=== PATIENT | female | born 1935 ===

== ENCOUNTER 2016-09-13 16:36 | Emergency (ER) | payer MEDICARE, MEDICAID ==
[2016-09-13 16:37] VITALS: BMI 22.6
[2016-09-13] MEDS ORDERED: Aluminum Hydroxide/Magnesium Hydroxide Susp (30 mL) PO STA (17:02)
[2016-09-13] MEDS ORDERED: Lidocaine 2% Viscous 100 ml PO STA (17:02)
--- NOTE | 2016-09-13 17:56 | C.PDOC ---
History Of Present Illness 81 y/o female presents to the ED with complains of headache and intermittent dizziness x1 week and epigastric pain x3 days. Headache is described as left posterior occiput and left neck, 6/10 discomfort. Abdominal pain is burning and radiates to chest. Pt also reports left posterior rib pain and right arm pain x3 days s/p fall. Pt was getting out of bed when she tripped on a sandle and fell onto nightstand with right side; pain is constant 8/10. Pt denies LOC, or head injury. Pt denies chest pain, SOB, fever, chills, nausea, vomiting or any other complaints. Time Seen by Provider: 09/13/16 16:56 Chief Complaint (Nursing): Abdominal Pain History Per: Patient History/Exam Limitations: no limitations Onset/Duration Of Symptoms: Days Current Symptoms Are (Timing): Still Present Severity: Moderate Radiation Of Pain To:: Chest Quality Of Discomfort: Burning Associated Symptoms: denies: Fever, Chills, Nausea, Vomiting Exacerbating Factors: None Alleviating Factors: None Recent travel outside of the [place]: No Past Medical History Reviewed: Historical Data, Nursing Documentation, Vital Signs Vital Signs: Last Vital Signs Temp 99 F 09/13/16 16:42 Pulse 86 09/13/16 18:12 Resp 20 09/13/16 18:12 BP 137/61 09/13/16 18:12 Pulse Ox 98 09/13/16 18:11 - Medical History PMH: Anxiety, Diabetes, HTN, Osteoporosis Denies: Anemia - [facility] Procedures ANT NASAL PACK FOR EPIST (05/26/14) Family History: States: Unknown Family Hx - Social History Hx Tobacco Use: No Hx Alcohol Use: No Hx Substance Use: No - Immunization History Hx Tetanus Toxoid Vaccination: No Hx Influenza Vaccination: Yes Hx Pneumococcal Vaccination: No Review Of Systems Except As Marked, All Systems Reviewed And Found Negative. Constitutional: Negative for: Fever, Chills Cardiovascular: Negative for: Chest Pain Respiratory: Negative for: Shortness of Breath Gastrointestinal: Positive for: Abdominal Pain (epigastric radiating to chest). Negative for: Nausea, Vomiting Musculoskeletal: Positive for: Other (left rib and arm pain) Neurological: Positive for: Headache, Dizziness Physical Exam - Physical Exam Appears: Non-toxic, No Acute Distress Skin: Warm, Dry, No Rash Head: Atraumatic, Normacephalic, No Swelling, No Abrasion Nose: Normal Neck: Normal ROM, No Midline Cervical Tenderness, No Paracervical Tenderness, Supple Chest: Symmetrical Cardiovascular: Rhythm Regular, No Murmur Respiratory: Normal Breath Sounds, No Rales, No Rhonchi, No Wheezing Gastrointestinal/Abdominal: Soft, No Tenderness Back: No Vertebral Tenderness, No Paraspinal Tenderness, Other (right posterior rib tenderness over ribs 10-11) Extremity: Normal ROM, No Pedal Edema Extremity: Bilateral: Atraumatic Neurological/Psych: Oriented x3, Normal Motor, Normal Sensation ED Course And Treatment - Laboratory Results Result Diagrams: 09/13/16 17:54 09/13/16 17:54 O2 Sat by Pulse Oximetry: 98 (on room air) Pulse Ox Interpretation: Normal - CT Scan/US CT head Other Rad Studies (CT/US): Read By Radiologist, Radiology Report Reviewed CT/US Interpretation: Accession No. : [id number]. Patient Name / ID : BLAKE SALBADOR / [id number]. Exam Date : 09/13/2016 17:40:26 ( Approved ). Study Comment : Sex / Age : F / 81Y. Creator : Baron Cadet MD. Dictator : Baron Cadet MD. Languages And Literature Instructor : Parking Lot Signaler : Baron Cadet MD. Approver2 : Report Date : 09/13/2016 17:58:17. My Comment : . PROCEDURE: CT HEAD WITHOUT CONTRAST. HISTORY: R/O Bleed. COMPARISON: None available. TECHNIQUE: Axial computed tomography images were obtained through the head/ brain without intravenous contrast. Radiation dose: Total exam DLP = 629.08 mGy-cm. FINDINGS: HEMORRHAGE: No acute parenchymal, subarachnoid or extra- axial hemorrhage. BRAIN: Moderate 2 fairly significant diffuse/ coalescent chronic white matter ischemic changes seen extending peripherally into the deep and subcortical white matter both cerebral hemispheres. There is also some extension of these changes into the white matter tracts of both basal nuclei. Vascular calcifications are present. VENTRICLES: Moderate central volume loss with disproportion enlargement of the ventricles compared the sulci. CALVARIUM : There are no acute calvarial fracture seen. PARANASAL SINUSES: Unremarkable as visualized. No significant inflammatory changes. MASTOID AIR CELLS: Apparent postoperative changes of the right middle ear canal and possibly some of the at inferior mastoid air cells. There is also opacification of the residual right mastoid air complex. OTHER FINDINGS: Status post bilateral cataract surgery. IMPRESSION: No acute intracranial hemorrhage. Moderate to fairly significant chronic white matter ischemic changes with extension into the basal nuclei. Apparent postoperative changes right middle ear canal possibly at several inferior mastoid air cells. There is opacification of the residual right mastoid air complex. Moderate central volume loss. Trent Medical Decision Making Medical Decision Making: Plan: CT head, EKG, XR ribs/chest, maalox, pepcid, UA Patient feeling much better, will d/c with follow up. Disposition Counseled Patient/Family Regarding: Studies Performed, Diagnosis, Need For Followup - Disposition Referrals: Pierre Strattno MD [Staff Provider] - Disposition: HOME/ ROUTINE Disposition Time: 18:59 Condition: IMPROVED Prescriptions: Famotidine [Pepcid] 1 tab PO BID #30 tab Acetaminophen [Tylenol Extra Strength] 1,000 mg PO BID #10 tablet Instructions: Gastritis (ED) Forms: Gen Discharge Inst Wallisian - Clinical Impression Clinical Impression: Gastritis, Rib contusion - Scribe Statement The provider has reviewed the documentation as recorded by the Poornima Cooper Provider Attestation: All medical record entries made by the Poornima were at my direction and personally dictated by me. I have reviewed the chart and agree that the record accurately reflects my personal performance of the history, physical exam, medical decision making, and the department course for this patient. I have also personally directed, reviewed, and agree with the discharge instructions and disposition.
[2016-09-13 17:59] LABS: BASO % 0.5 % (0.0-2.0); EOS # 0.1 K/uL (0.0-0.7); EOS % 1.5 % (0.0-4.0); HEMATOCRIT 36.5 % (34.0-47.0); LYMPH # 1.5 K/uL (1.0-4.3); LYMPH % 16.4 % (20.0-40.0); MEAN CORPUSCULAR HEMOGLOBIN 28.2 pg (27.0-31.0); MEAN PLATELET VOLUME 8.9 fL (7.2-11.7); MONO # 0.8 K/uL (0.0-0.8); MONO % 8.5 % (0.0-10.0); RED CELL DISTRIBUTION WIDTH 13.1 % (11.5-14.5); WHITE BLOOD COUNT 9.2 K/uL (4.8-10.8)
--- NOTE | 2016-09-13 17:59 | CT ---
PROCEDURE: CT HEAD WITHOUT CONTRAST. HISTORY: R/O Bleed COMPARISON: None available. TECHNIQUE: Axial computed tomography images were obtained through the head/brain without intravenous contrast. Radiation dose: Total exam DLP = 629.08 mGy-cm. FINDINGS: HEMORRHAGE: No acute parenchymal, subarachnoid or extra-axial hemorrhage. BRAIN: Moderate 2 fairly significant diffuse/ coalescent chronic white matter ischemic changes seen extending peripherally into the deep and subcortical white matter both cerebral hemispheres. There is also some extension of these changes into the white matter tracts of both basal nuclei. Vascular calcifications are present. VENTRICLES: Moderate central volume loss with disproportion enlargement of the ventricles compared the sulci. CALVARIUM: There are no acute calvarial fracture seen. PARANASAL SINUSES: Unremarkable as visualized. No significant inflammatory changes. MASTOID AIR CELLS: Apparent postoperative changes of the right middle ear canal and possibly some of the at inferior mastoid air cells. There is also opacification of the residual right mastoid air complex. OTHER FINDINGS: Status post bilateral cataract surgery. IMPRESSION: No acute intracranial hemorrhage. Moderate to fairly significant chronic white matter ischemic changes with extension into the basal nuclei. Apparent postoperative changes right middle ear canal possibly at several inferior mastoid air cells. There is opacification of the residual right mastoid air complex. Moderate central volume loss. Trent
[2016-09-13 18:02] LABS: MEAN CELL VOLUME 85.3 fL (81.0-99.0)
[2016-09-13] MEDS ORDERED: Aluminum Hydroxide/Magnesium Hydroxide Susp (30 mL) ONE (18:08)
[2016-09-13 18:34] LABS: CHLORIDE 99 mmol/L (98-107)
[2016-09-13 18:35] LABS: POTASSIUM 4.3 mmol/L (3.6-5.2); SODIUM 139 mmol/L (132-148)
[2016-09-13 18:37] LABS: ALB/GLOB RATIO 1.1 (1.0-2.1); ALKALINE PHOSPHATASE 67 U/L (38-126); AST/SGOT 23 U/L (14-36); BILIRUBIN,TOTAL 0.4 mg/dL (0.2-1.3); BLOOD UREA NITROGEN 18 mg/dL (7-17); CARBON DIOXIDE 29 mmol/L (22-30); GFR AFRICAN-AMERICAN > 60; GLUCOSE,RANDOM 110 mg/dL (65-105); TOTAL PROTEIN 7.8 g/dL (6.3-8.3)
[2016-09-13 18:38] LABS: ALT/SGPT 28 U/L (9-52); CALCIUM 9.4 mg/dl (8.6-10.4)
[2016-09-13 19:03] LABS: RBC URINE < 1 /hpf (0-3); URINE BACTERIA RARE (<OCC); URINE BILIRUBIN NEGATIVE (NEGATIVE); URINE BLOOD NEGATIVE (NEGATIVE); URINE COLOR Straw (YELLOW); URINE GLUCOSE (UA) NORMAL (Normal); URINE KETONE NEGATIVE (NEGATIVE); URINE LEUKOCYTE ESTERASE NEG Leu/uL (Negative); URINE PROTEIN NEGATIVE (NEGATIVE); URINE UROBILINOGEN NORMAL mg/dL (0.2-1.0); WBC URINE < 1 /hpf (0-5)
[2016-09-13 19:15] VITALS: BP 123/66; PULSE 85; RESP 16; TEMP 98.2; O2SAT 96
--- NOTE | 2016-09-14 17:42 | RAD ---
Chest and right rib series dated 09/13/2016. History: Status post fall with right rib pain. Frontal view of the chest and 3 additional views right ribs performed. Comparison made with prior study 01/24/2015. Findings: Heart size is upper limits of normal/borderline enlarged. Aorta is slightly ectatic and uncoiled. Mild bibasilar atelectasis and or scarring changes. No apparent pneumothorax. No definitive evidence of acute displaced right-sided rib fracture seen. If symptoms persist or occult fracture suspected clinically, recommend followup CT scan of the chest. Multilevel degenerative spondylosis of the thoracic spine. Degenerative changes of the both shoulder girdles right greater than left. Impression: No definitive radiographic evidence of acute displaced right-sided rib fracture however followup CT scan could be performed if occult fracture suspected clinically. Mild bibasilar atelectasis and or scarring.
--- NOTE | 2016-09-14 22:19 | CARD ---
APPROVED REPORT EKG Measurement Heart [id number] <Conclusion> Normal sinus rhythm Normal ECG
== END 2016-09-13 19:15 | disposition home or self-care (01) ==
LOC: C.ER 16:36
DX: K29.70 Gastritis, unspecified, without bleeding (principal); S20.212A Contusion of left front wall of thorax, initial encounter; W19.XXXA Unspecified fall, initial encounter

== ENCOUNTER 2016-10-01 22:51 | Emergency (ER) | payer MEDICARE, MEDICAID ==
[2016-10-03 11:19] LABS: HEMATOCRIT 32.5 % (34.0-47.0); MEAN CELL VOLUME 86.7 fL (81.0-99.0); MEAN CORPUSCULAR HEMOGLOBIN 27.6 pg (27.0-31.0); MEAN CORPUSCULAR HGB CONC 31.9 g/dL (33.0-37.0); WHITE BLOOD COUNT 9.1 K/uL (4.8-10.8)
[2016-10-03 11:20] LABS: MEAN PLATELET VOLUME 9.1 fL (7.2-11.7); RED CELL DISTRIBUTION WIDTH 13.6 % (11.5-14.5)
[2016-10-03 11:24] LABS: BLOOD UREA NITROGEN 19 mg/dL (7-17); CALCIUM 9.2 mg/dl (8.6-10.4); CARBON DIOXIDE 30 mmol/L (22-30); CHLORIDE 99 mmol/L (98-107); GFR AFRICAN-AMERICAN > 60; GLUCOSE,RANDOM 121 mg/dL (65-105); POTASSIUM 4.7 mmol/L (3.6-5.2); SODIUM 140 mmol/L (132-148)
== END 2016-10-02 01:44 | disposition home or self-care (01) ==
LOC: C.ER 22:51
DX: K92.2 Gastrointestinal hemorrhage, unspecified (principal)

== ENCOUNTER 2016-10-05 10:12 | Inpatient (IN) | payer MEDICAID, MEDICARE ==
[2016-10-05 10:13] VITALS: BMI 22.6
[2016-10-05 11:05] LABS: BASO # 0.1 K/uL (0.0-0.2); BASO % 0.9 % (0.0-2.0); EOS # 0.3 K/uL (0.0-0.7); EOS % 2.7 % (0.0-4.0); HEMATOCRIT 30.9 % (34.0-47.0); LYMPH # 2.2 K/uL (1.0-4.3); LYMPH % 21.4 % (20.0-40.0); MEAN CELL VOLUME 87.4 fL (81.0-99.0); MEAN CORPUSCULAR HEMOGLOBIN 27.6 pg (27.0-31.0); MEAN CORPUSCULAR HGB CONC 31.6 g/dL (33.0-37.0); MEAN PLATELET VOLUME 9.1 fL (7.2-11.7); MONO # 0.5 K/uL (0.0-0.8); MONO % 4.8 % (0.0-10.0); RED CELL DISTRIBUTION WIDTH 13.4 % (11.5-14.5); WHITE BLOOD COUNT 10.2 K/uL (4.8-10.8)
[2016-10-05 11:13] LABS: CHLORIDE 100 mmol/L (98-107); POTASSIUM 4.4 mmol/L (3.6-5.2); SODIUM 143 mmol/L (132-148)
[2016-10-05 11:15] LABS: AST/SGOT 19 U/L (14-36); BILIRUBIN,TOTAL 0.3 mg/dL (0.2-1.3); CARBON DIOXIDE 29 mmol/L (22-30); GFR AFRICAN-AMERICAN > 60
[2016-10-05 11:16] LABS: ALB/GLOB RATIO 1.3 (1.0-2.1); ALKALINE PHOSPHATASE 60 U/L (38-126); ALT/SGPT 22 U/L (9-52); BLOOD UREA NITROGEN 18 mg/dL (7-17); CALCIUM 8.8 mg/dl (8.6-10.4); GLUCOSE,RANDOM 124 mg/dL (65-105); TOTAL PROTEIN 6.9 g/dL (6.3-8.3)
[2016-10-05 11:23] LABS: INR 1.1
--- NOTE | 2016-10-05 11:28 | C.PDOC ---
History Of Present Illness 81 year old patient, with a past medical history of hypertension, anxiety, GERD , and diabetes, presents to the ED complaining of painless rectal bleeding. Notes bright red blood with clots mixed with stool. Episode was with and without bowel movement. Also notes abdominal pain for the past 2 days, has improved now. (+) occassional dizziness. Patient was seen in the ED on 10/01/16 for similar symptoms. Pt was discharged home but has not f/u outpt. She states she had a colonoscopy "years ago". Patient denies fever, nausea, vomiting, chest pain, SOB, dysuria, or rectal pain. Time Seen by Provider: 10/05/16 10:22 Chief Complaint (Nursing): GI Problem History Per: Patient, Family (son) History/Exam Limitations: language barrier (ED staff translated) Onset/Duration Of Symptoms: Days (2) Current Symptoms Are (Timing): Still Present Number Of Bleeding Episodes: Multiple: (3) Amount of Blood Loss: Small Severity: Moderate Pain Scale Rating Of: 4 Quality Of Discomfort: "Pain" Associated Symptoms: Rectal Bleeding Recent travel outside of the [place]: No Additional History Per: Family Past Medical History Reviewed: Historical Data, Nursing Documentation, Vital Signs Vital Signs: Last Vital Signs Temp 97.8 F 10/05/16 13:01 Pulse 80 10/05/16 13:01 Resp 20 10/05/16 13:01 BP 130/57 L 10/05/16 13:01 Pulse Ox 100 10/05/16 13:01 - Medical History PMH: Anxiety, Diabetes, HTN, Osteoporosis Other Surgeries: Tubal ligation; nasal - [facility] Procedures ANT NASAL PACK FOR EPIST (05/26/14) Family History: States: Other (father - prostate CA, brother - CA) - Social History Hx Tobacco Use: No Hx Alcohol Use: No Hx Substance Use: No - Immunization History Hx Tetanus Toxoid Vaccination: No Hx Influenza Vaccination: Yes Hx Pneumococcal Vaccination: No Review Of Systems Except As Marked, All Systems Reviewed And Found Negative. Constitutional: Negative for: Fever Gastrointestinal: Positive for: Abdominal Pain, Other (rectal bleeding). Negative for: Nausea, Vomiting, Rectal Pain Physical Exam - Physical Exam Appears: Non-toxic, No Acute Distress Skin: Warm, Dry Head: Atraumatic, Normacephalic Eye(s): bilateral: Normal Inspection, EOMI Nose: Normal Oral Mucosa: Moist Neck: Normal ROM, Supple Chest: Symmetrical Cardiovascular: Rhythm Regular Respiratory: Normal Breath Sounds, No Accessory Muscle Use Gastrointestinal/Abdominal: Soft, No Tenderness, No Guarding, No Rebound Rectal: Blood Streaked Stool, No Hemorrhoids, No Tenderness Back: Normal Inspection, No CVA Tenderness Extremity: Normal ROM Neurological/Psych: Oriented x3 ED Course And Treatment - Laboratory Results Result Diagrams: 10/05/16 10:55 10/05/16 10:55 O2 Sat by Pulse Oximetry: 99 (RA) Pulse Ox Interpretation: Normal Progress Note: Plan: -Labs. --Reassess and disposition. PT hemoglobin March: 12; Today :9.7. Case discussed with Dr Anastacio sandra plan and treatment. Case discussed with Dr. Paniagua who is aware of the plan and admission. Disposition - Disposition Disposition: HOSPITALIZED Disposition Time: 13:00 Condition: STABLE - Clinical Impression Clinical Impression: Gastrointestinal hemorrhage - PA / INSTRUMENT TECHNICIAN / Resident Statement MD/DO has reviewed & agrees with the documentation as recorded. - Scribe Statement The provider has reviewed the documentation as recorded by the Scribe Delicia Acosta All medical record entries made by the Scribe were at my direction and personally dictated by me. I have reviewed the chart and agree that the record accurately reflects my personal performance of the history, physical exam, medical decision making, and the department course for this patient. I have also personally directed, reviewed, and agree with the discharge instructions and disposition.
[2016-10-05] MEDS ORDERED: Pantoprazole 80 MG in Sodium Chloride 0.9% 100 ML IVP SCH (12:00)
[2016-10-05] MEDS: Sodium Chloride 0.9% 1,000 ML IV SCH (12:15)
--- NOTE | 2016-10-05 12:15 | CP.PCM.HP ---
<Ksenia French - Last Filed: 10/05/16 13:23> History of Present Illness - History of Present Illness History of Present Illness: CC: "rectal bleeding" HPI: Patient is an 81 year old female with PMHx of HTN, osteoporosis and anxiety presenting for the second time this week to ER for rectal bleeding. Patient first had episode of rectal bleeding on 10/01/16. Patient and son giving history. Patient says bleeding on 10/01/16 was a little bit. They came to ER where her hgb was 10.3 and she was sent home with instructions to follow up with GI. Patient did not bleed again until this AM. Patient says she woke up and felt a "gushiness" in her underwear. It was stool mixed with blood. Patient got up and went to the toilet where more stool mixed with blood came up. She then showered. A lot of thin blood came out in the shower. Patient felt dizzy and weak at this time and continues to feel dizzy. Patient says blood has been slowly dripping out of her rectum since then. Patient says this has never happened before. Patient says she has had a problem with constipation for the past few years. Patient reports a 3 month history of epigastric pain associated with certain foods and xanax. Patient says she has a burning pain in her chest associated with nausea currently and pain in her abdomen. Patient also reports a dry cough since Thursday night. Patient denies fever, chills, cardiac pain, palpitations, SOB, vomiting, dysuria. PMD: Dr. 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 absent: Dyspnea, Excessive Mucous Production - Gastrointestinal Gastrointestinal: Constipation, Heartburn, Hematochezia, Nausea. absent: Coffee Ground Emesis, Diarrhea, Hematemesis, Vomiting - Genitourinary Genitourinary: absent: Dysuria - Musculoskeletal Musculoskeletal: absent: Back Pain - Integumentary Integumentary: absent: Rash - Neurological Neurological: Dizziness, Weakness. absent: Headaches - Endocrine Endocrine: Fatigue. absent: Palpitations - Hematologic/Lymphatic Hematologic: Easy Bleeding. absent: Easy Bruising Past Patient History - Past Medical History & Family History Past Medical History?: Yes Pertinent Family History: Mother - gastritis, Son1 - ulcer, son 2 - hemorrhoids, sister - has a pacemaker , father - prostate CA, brother - unknown type of cancer - Past Social History Smoking Status: Never Smoked Alcohol: None Drugs: Denies Home Situation {Lives}: With Family - CARDIAC Hx Hypertension: Yes - ENDOCRINE/METABOLIC Hx Diabetes Mellitus Type 2: No - HEMATOLOGICAL/ONCOLOGICAL Hx Anemia: No - MUSCULOSKELETAL/RHEUMATOLOGICAL Hx Osteoporosis: Yes - PSYCHIATRIC Hx Anxiety: Yes Hx Substance Use: No - SURGICAL HISTORY Hx Surgeries: Yes Hx Tubal Ligation: Yes Other/Comment: nasal surgery years ago - ANESTHESIA Hx Anesthesia: No Hx Anesthesia Reactions: No Meds Allergies/Adverse Reactions: Allergies Allergy/AdvReac Type Severity Reaction Status Date / Time shrimp Allergy Verified 10/05/16 10:24 Physical Exam - Constitutional Appears: Non-toxic, No Acute Distress - Head Exam Head Exam: NORMAL INSPECTION - Eye Exam Eye Exam: EOMI Additional comments: conjunctival pallor - ENT Exam ENT Exam: Mucous Membranes Moist - Respiratory Exam Respiratory Exam: Clear to Auscultation Bilateral, NORMAL BREATHING PATTERN. absent: Rales, Rhonchi, Wheezes - Cardiovascular Exam Cardiovascular Exam: REGULAR RHYTHM, +S1, +S2. absent: Gallop, Rubs, Systolic Murmur - GI/Abdominal Exam GI & Abdominal Exam: Normal Bowel Sounds, Soft, Tenderness (epigastric and umbilical). absent: Distended, Firm, Guarding, Hernia - Rectal Exam Rectal Exam: absent: Hemorrhoids - Extremities Exam Extremities exam: Positive for: normal capillary refill. Negative for: pedal edema - Neurological Exam Neurological exam: Alert, Oriented x3 - Psychiatric Exam Psychiatric exam: Normal Affect, Normal Mood - Skin Skin Exam: Normal Color, Warm Results - Vital Signs Recent Vital Signs: Last Vital Signs Temp 97.6 F 10/05/16 12:05 Pulse 79 10/05/16 12:05 Resp 18 10/05/16 12:05 BP 152/75 H 10/05/16 12:05 Pulse Ox 99 10/05/16 12:05 - Labs Result Diagrams: 10/05/16 10:55 10/05/16 10:55 Assessment & Plan - Assessment and Plan (Free Text) Assessment: GI bleed Hgb 9.7 F/U Hgb in AM Type and Screen Stop home ASA Protonix IV drip Tap water enema at 9pm and 6am Dulcolax 10mg PO at 5pm Reglan 5mg IVP Q6H x 2 days Golytely 4000mls PO at 1pm Clear liquid diet until midnight F/U CXR, EKG and Coags NPO after midnight for colonoscopy in AM GI consult - Dr. Alcala - help appreciated Cough F/U CXR H/O HTN Cozaar 100mg PO daily (converted from home med valsartan 160mg PO daily) Continue home norvasc 5mg PO daily H/O anxiety Continue home xanax 0.5mg PO BID PRN anxiety H/O osteoporosis No ibandronate or other bisphosphonates on formulary Patient takes it once a month. Prophylaxis SCDs Protonix IV drip <Dejuan Paniagua - Last Filed: 10/05/16 14:05> Results - Vital Signs Recent Vital Signs: Last Vital Signs Temp 97.8 F 10/05/16 13:01 Pulse 80 10/05/16 13:01 Resp 20 10/05/16 13:01 BP 130/57 L 10/05/16 13:01 Pulse Ox 100 10/05/16 13:01 - Labs Result Diagrams: 10/05/16 10:55 10/05/16 10:55 Attending/Attestation - Attestation I have personally seen and examined this patient.: Yes I have fully participated in the care of the patient.: Yes I have reviewed all pertinent clinical information: Yes Notes (Text): Medical attending: Patient was seen and examined by me, agrees the above note by medical assistant instructor. As documented above the resident note the patient was recently here with the same complaints, at that time she appeared to be very stable and her hemoglobin was higher so was decided to let the patient go home and she would need to follow-up with GI outpatient. However she returns to us after she had another recurrence of the bleeding, her hemoglobin is somewhat lower this time. When I saw her in the emergency room she was not in any acute distress she appeared very comfortable, and her vital signs were stable. She does report a lot of history of reflux and GERD, and does take aspirin. I spoke with the patient's primary care physician to let him know that she is currently at the hospital - I also met with GI as well the plan is to have colonoscopy/endoscopy sometime tomorrow Meantime we'll check a EKG chest x-ray type and screen, she's continued to be nothing by mouth Thank you Dejuan Paniagua
[2016-10-05] MEDS ORDERED: Home Med 1 UNIT (Valsartan [Diovan] 160 MG) PO SCH (12:30)
[2016-10-05] MEDS ORDERED: IBANDRONATE SODIUM 150 MG PO SCH (12:30)
[2016-10-05] MEDS: Pantoprazole 80 MG in Sodium Chloride 0.9% 100 ML IVPB SCH ×3 (12:37→22:30)
[2016-10-05] MEDS ORDERED: Peg-Electrolyte Oral Soln 4L (Golytely) PO ONE (13:00)
[2016-10-05] MEDS ORDERED: Bisacodyl 5mg EC Tab PO ONE (17:00)
[2016-10-05] MEDS: Calcium-Vit D 500 mg-200 Units Tab UD PO SCH (17:22)
[2016-10-05 18:16] LABS: URINE BACTERIA OCC (<OCC); URINE BILIRUBIN NEGATIVE (NEGATIVE); URINE BLOOD NEGATIVE (NEGATIVE); URINE COLOR Yellow (YELLOW); URINE GLUCOSE (UA) NORMAL (Normal); URINE KETONE NEGATIVE (NEGATIVE); URINE LEUKOCYTE ESTERASE NEG Leu/uL (Negative); URINE PROTEIN NEGATIVE (NEGATIVE); URINE UROBILINOGEN NORMAL mg/dL (0.2-1.0); WBC URINE 1 /hpf (0-5)
--- NOTE | 2016-10-05 18:29 | RAD ---
HISTORY: cough COMPARISON: 09/13/2016 FINDINGS: LUNGS: Left basilar atelectasis. PLEURA: No significant pleural effusion identified, no pneumothorax apparent. CARDIOVASCULAR: Normal. OSSEOUS STRUCTURES: Calcific tendinopathy of the right proximal humerus. VISUALIZED UPPER ABDOMEN: Normal. OTHER FINDINGS: None. IMPRESSION: Left basilar atelectasis.
[2016-10-06] MEDS: Sodium Chloride 0.9% 1,000 ML IV SCH ×2 (02:20→21:33)
[2016-10-06] MEDS: Pantoprazole 80 MG in Sodium Chloride 0.9% 100 ML IVPB SCH ×3 (05:40→17:31)
[2016-10-06 08:52] LABS: BASO # 0.1 K/uL (0.0-0.2); BASO % 0.8 % (0.0-2.0); EOS # 0.2 K/uL (0.0-0.7); EOS % 2.8 % (0.0-4.0); HEMATOCRIT 26.2 % (34.0-47.0); LYMPH # 2.1 K/uL (1.0-4.3); LYMPH % 29.8 % (20.0-40.0); MEAN CELL VOLUME 86.4 fL (81.0-99.0); MEAN CORPUSCULAR HEMOGLOBIN 27.8 pg (27.0-31.0); MEAN CORPUSCULAR HGB CONC 32.1 g/dL (33.0-37.0); MEAN PLATELET VOLUME 9.1 fL (7.2-11.7); MONO # 0.5 K/uL (0.0-0.8); MONO % 7.1 % (0.0-10.0); RED CELL DISTRIBUTION WIDTH 13.3 % (11.5-14.5); WHITE BLOOD COUNT 7.2 K/uL (4.8-10.8)
[2016-10-06 08:59] LABS: CHLORIDE 103 mmol/L (98-107)
[2016-10-06 09:00] LABS: INR 1.2; POTASSIUM 3.6 mmol/L (3.6-5.2); SODIUM 143 mmol/L (132-148)
[2016-10-06 09:02] LABS: ALB/GLOB RATIO 1.2 (1.0-2.1); ALKALINE PHOSPHATASE 57 U/L (38-126); ALT/SGPT 22 U/L (9-52); AST/SGOT 19 U/L (14-36); BILIRUBIN,TOTAL 0.3 mg/dL (0.2-1.3); BLOOD UREA NITROGEN 8 mg/dL (7-17); CARBON DIOXIDE 26 mmol/L (22-30); GFR AFRICAN-AMERICAN > 60; TOTAL PROTEIN 6.3 g/dL (6.3-8.3)
[2016-10-06 09:03] LABS: CALCIUM 7.8 mg/dl (8.6-10.4); GLUCOSE,RANDOM 97 mg/dL (65-105)
[2016-10-06] MEDS ORDERED: BEPOTASTINE BESILATE OU SCH (10:00)
[2016-10-06] MEDS ORDERED: Naphazoline-Pheniramine Ophth Soln OU SCH (10:00)
[2016-10-06] MEDS: Calcium-Vit D 500 mg-200 Units Tab UD PO SCH ×2 (10:59→17:29)
--- NOTE | 2016-10-06 15:52 | CP.PCM.PN ---
<Hebert Urbinakan - Last Filed: 10/06/16 15:48> Subjective - Date & Time of Evaluation Date of Evaluation: 10/06/16 Time of Evaluation: 08:34 - Subjective Subjective: Pt seen and examined. Pt resting comfortably in bed. Pt reports that she has not experienced any episodes of hematochezia and melena today. Pt reports slight abdominal pain. Pt denies fever, chills, chest pain, shortness of breath , nausea, and vomiting. Objective - Vital Signs/Intake and Output Vital Signs (last 24 hours): Temp Pulse Resp BP Pulse Ox 98.4 F 76 15 126/45 L 99 10/06/16 15:32 10/06/16 15:32 10/06/16 15:32 10/06/16 15:32 10/06/16 15:32 Intake and Output: 10/06/16 10/06/16 06:59 18:59 Intake Total 3680 830 Balance 3680 830 - Medications Medications: Current Medications Alprazolam (Xanax) 0.5 mg PO BID PRN PRN Reason: Anxiety Amlodipine Besylate (Norvasc) 5 mg PO DAILY [facility] Last Admin: 10/05/16 15:56 Dose: 5 mg Bisacodyl (Dulcolax) 10 mg PO ONCE ONE Stop: 10/06/16 18:01 Calcium/Vitamin D (Oyster Shell Calcium/Vitamin D 500 Mg-200 Iu) 1 tab PO BID [facility] Last Admin: 10/06/16 10:59 Dose: Not Given Sodium Chloride (Sodium Chloride 0.9%) 1,000 mls @ 75 mls/hr IV .[id number] [facility] Last Admin: 10/06/16 02:20 Dose: 75 mls/hr Pantoprazole Sodium 80 mg/ (Sodium Chloride) 100 mls @ 10 mls/hr IVPB .Q10H [facility] PRN Reason: 8 MG/HR Last Admin: 10/06/16 05:40 Dose: 10 mls/hr Losartan Potassium (Cozaar) 100 mg PO DAILY [facility] Last Admin: 10/06/16 09:17 Dose: 100 mg Magnesium Citrate (Citrate Of Mag) 1,200 ml PO ONCE ONE Stop: 10/06/16 16:01 Metoclopramide HCl (Reglan) 5 mg IVP Q6H [facility] Stop: 10/07/16 12:31 Last Admin: 10/06/16 11:58 Dose: 5 mg Naphazoline HCl/Pheniramine Maleate (Naphcon-A Opht) 1 ml OU DAILY [facility] Last Admin: 10/06/16 10:58 Dose: 1 drop Pneumococcal Polyvalent Vaccine (Pneumovax 23 Vaccine) 0.5 ml IM .ONCE ONE Stop: 10/08/16 10:01 Tramadol HCl (Ultram) 50 mg PO TID PRN PRN Reason: Pain, moderate (4-7) - Labs Labs: 10/06/16 08:46 10/06/16 08:46 PT 13.1 SECONDS (9.7-12.2) H 10/06/16 08:46 INR 1.2 10/06/16 08:46 APTT 30 SECONDS (21-34) 10/06/16 08:46 - Constitutional Appears: No Acute Distress - Head Exam Head Exam: ATRAUMATIC, NORMOCEPHALIC - Eye Exam Eye Exam: EOMI, PERRL - ENT Exam ENT Exam: Mucous Membranes Moist. absent: Mucous Membranes Dry - Neck Exam Neck Exam: Full ROM. absent: Lymphadenopathy - Respiratory Exam Respiratory Exam: Clear to Ausculation Bilateral. absent: Rales, Rhonchi, Wheezes - Cardiovascular Exam Cardiovascular Exam: +S1, +S2. absent: Gallop, Rubs - GI/Abdominal Exam GI & Abdominal Exam: Soft, Tenderness. absent: Guarding, Rigid Additional comments: slight mid epigastric tenderness - Extremities Exam Extremities Exam: Full ROM. absent: Pedal Edema - Neurological Exam Neurological Exam: Alert, Awake, Oriented x3 - Psychiatric Exam Psychiatric exam: Normal Affect, Normal Mood - Skin Skin Exam: Normal Color, Warm Assessment and Plan - Assessment and Plan (Free Text) Assessment: GI Bleed: Hgb 8.4 GI, Dr. Alcala, consulted. Help appreciated. Stool for occult blood - positive Pt planned for colonoscopy today with Dr. Alcala. Protonix drip Ultram 50 mg po TID prn for moderate pain NS IVF 75 cc/hr CXR - left basilar atelectasis Afebrile, nontachycardic No leukocytosis Hx of HTN: Cozaar 100 mg po qd Norvasc 5 mg po qd Hx of Anxiety: Xanax 0.5 mg po bid prn Hx of Osteoporosis: Calcium/Vitamin D 500 mg / 200 IU 1 tab po bid Pruritic Eyes: Naphcon - opthalmic 1 drop OU qd Prophylactic Measures: GI: Protonix drip DVT: SCDs, chemical anticoagulation contraindicated due to GI bleed <Waqar Damon - Last Filed: 10/06/16 17:24> Objective - Vital Signs/Intake and Output Vital Signs (last 24 hours): Temp Pulse Resp BP Pulse Ox 98.4 F 76 15 126/45 L 99 10/06/16 15:32 10/06/16 15:32 10/06/16 15:32 10/06/16 15:32 10/06/16 15:32 Intake and Output: 10/06/16 10/06/16 06:59 18:59 Intake Total 3680 930 Balance 3680 930 - Medications Medications: Current Medications Alprazolam (Xanax) 0.5 mg PO BID PRN PRN Reason: Anxiety Amlodipine Besylate (Norvasc) 5 mg PO DAILY [facility] Last Admin: 10/05/16 15:56 Dose: 5 mg Bisacodyl (Dulcolax) 10 mg PO ONCE ONE Stop: 10/06/16 18:01 Calcium/Vitamin D (Oyster Shell Calcium/Vitamin D 500 Mg-200 Iu) 1 tab PO BID [facility] Last Admin: 10/06/16 10:59 Dose: Not Given Sodium Chloride (Sodium Chloride 0.9%) 1,000 mls @ 75 mls/hr IV .[id number] [facility] Last Admin: 10/06/16 02:20 Dose: 75 mls/hr Pantoprazole Sodium 80 mg/ (Sodium Chloride) 100 mls @ 10 mls/hr IVPB .Q10H [facility] PRN Reason: 8 MG/HR Last Admin: 10/06/16 05:40 Dose: 10 mls/hr Losartan Potassium (Cozaar) 100 mg PO DAILY [facility] Last Admin: 10/06/16 09:17 Dose: 100 mg Naphazoline HCl/Pheniramine Maleate (Naphcon-A Opht) 1 ml OU DAILY [facility] Last Admin: 10/06/16 10:58 Dose: 1 drop Pneumococcal Polyvalent Vaccine (Pneumovax 23 Vaccine) 0.5 ml IM .ONCE ONE Stop: 10/08/16 10:01 Tramadol HCl (Ultram) 50 mg PO TID PRN PRN Reason: Pain, moderate (4-7) - Labs Labs: 10/06/16 08:46 04 08:46 PT 13.1 SECONDS (9.7-12.2) H 10/06/16 08:46 INR 1.2 10/06/16 08:46 APTT 30 SECONDS (21-34) 04 08:46 Attending/Attestation - Attestation I have personally seen and examined this patient.: Yes I have fully participated in the care of the patient.: Yes I have reviewed all pertinent clinical information, including history, physical exam and plan: Yes Notes (Text): 10/06/16 17:24 Patient was seen and examined at bedside with the resident Patient appears comfortable and there is no lower GI bleeding at this time. H&H is stable Patient is nothing by mouth Plan for colonoscopy today We will follow-up report
[2016-10-06] MEDS ORDERED: Magnesium Citrate Oral SOL (300 ml) PO ONE ×2 (16:00→17:06)
[2016-10-06] MEDS ORDERED: Bisacodyl 5mg EC Tab PO ONE (18:00)
[2016-10-07] MEDS: Pantoprazole 80 MG in Sodium Chloride 0.9% 100 ML IVPB SCH ×2 (04:00→14:56)
[2016-10-07 07:50] LABS: BASO % 0.7 % (0.0-2.0); EOS # 0.2 K/uL (0.0-0.7); EOS % 3.4 % (0.0-4.0); HEMATOCRIT 26.8 % (34.0-47.0); LYMPH # 1.9 K/uL (1.0-4.3); LYMPH % 28.8 % (20.0-40.0); MEAN CELL VOLUME 86.6 fL (81.0-99.0); MEAN CORPUSCULAR HEMOGLOBIN 27.8 pg (27.0-31.0); MEAN CORPUSCULAR HGB CONC 32.2 g/dL (33.0-37.0); MONO # 0.5 K/uL (0.0-0.8); MONO % 7.5 % (0.0-10.0); RED CELL DISTRIBUTION WIDTH 13.4 % (11.5-14.5); WHITE BLOOD COUNT 6.7 K/uL (4.8-10.8)
[2016-10-07 08:11] LABS: CHLORIDE 106 mmol/L (98-107); POTASSIUM 3.7 mmol/L (3.6-5.2); SODIUM 144 mmol/L (132-148)
[2016-10-07 08:13] LABS: ALB/GLOB RATIO 1.2 (1.0-2.1); ALKALINE PHOSPHATASE 54 U/L (38-126); AST/SGOT 22 U/L (14-36); BILIRUBIN,TOTAL 0.3 mg/dL (0.2-1.3); CARBON DIOXIDE 26 mmol/L (22-30); GFR AFRICAN-AMERICAN > 60; TOTAL PROTEIN 6.1 g/dL (6.3-8.3)
[2016-10-07 08:14] LABS: ALT/SGPT 17 U/L (9-52); BLOOD UREA NITROGEN 5 mg/dL (7-17); CALCIUM 7.9 mg/dl (8.6-10.4); GLUCOSE,RANDOM 91 mg/dL (65-105); MAGNESIUM 2.2 mg/dL (1.6-2.3); PHOSPHOROUS 2.3 mg/dL (2.5-4.5)
[2016-10-07] MEDS: Calcium-Vit D 500 mg-200 Units Tab UD PO SCH ×2 (10:58→17:34)
[2016-10-07] MEDS: metroNIDAZOLE IV 500 mg/100 ml 100 ML IVPB SCH ×2 (11:02→17:33)
[2016-10-07] MEDS: Naphazoline-Pheniramine Ophth Soln OU SCH (11:03)
--- NOTE | 2016-10-07 12:59 | CP.PCM.PN ---
<Juanita Peguero - Last Filed: 10/07/16 12:59> Subjective - Date & Time of Evaluation Date of Evaluation: 10/07/16 Time of Evaluation: 07:20 - Subjective Subjective: Internal medicine progress note for Hospitalist service- Juanita Peguero, PGY-1 Pt S & E at bedside. Pt only complaint is anxiety. Denies hematuria, hematochezia, hemoptysis, N/V/F /C, SOB, CP, abdominal pain. For repeat colonoscopy and egd today. Objective - Vital Signs/Intake and Output Vital Signs (last 24 hours): Temp Pulse Resp BP Pulse Ox 96.9 F L 76 16 113/51 L 98 10/07/16 09:15 10/07/16 09:45 10/07/16 09:45 10/07/16 09:45 10/07/16 09:45 Intake and Output: 10/07/16 10/07/16 06:59 18:59 Intake Total 700 300 Balance 700 300 - Medications Medications: Current Medications Alprazolam (Xanax) 0.5 mg PO BID PRN PRN Reason: Anxiety Last Admin: 10/06/16 21:29 Dose: 0.5 mg Amlodipine Besylate (Norvasc) 5 mg PO DAILY [facility] Last Admin: 10/07/16 10:59 Dose: 5 mg Calcium/Vitamin D (Oyster Shell Calcium/Vitamin D 500 Mg-200 Iu) 1 tab PO BID [facility] Last Admin: 10/07/16 10:58 Dose: 1 tab Sodium Chloride (Sodium Chloride 0.9%) 1,000 mls @ 75 mls/hr IV .[id number] [facility] Last Admin: 10/06/16 21:33 Dose: 75 mls/hr Pantoprazole Sodium 80 mg/ (Sodium Chloride) 100 mls @ 10 mls/hr IVPB .Q10H [facility] PRN Reason: 8 MG/HR Last Admin: 10/07/16 04:00 Dose: 10 mls/hr Metronidazole (Flagyl) 100 mls @ 100 mls/hr IVPB Q8H [facility] Last Admin: 10/07/16 11:02 Dose: 100 mls/hr Losartan Potassium (Cozaar) 100 mg PO DAILY [facility] Last Admin: 10/07/16 10:58 Dose: 100 mg Naphazoline HCl/Pheniramine Maleate (Naphcon-A Opht) 0 ml OU DAILY [facility] Last Admin: 10/07/16 11:03 Dose: 1 drop Pneumococcal Polyvalent Vaccine (Pneumovax 23 Vaccine) 0.5 ml IM .ONCE ONE Stop: 10/08/16 10:01 Tramadol HCl (Ultram) 50 mg PO TID PRN PRN Reason: Pain, moderate (4-7) - Labs Labs: 10/07/16 07:33 10/07/16 07:33 PT 13.1 SECONDS (9.7-12.2) H 10/06/16 08:46 INR 1.2 10/06/16 08:46 APTT 30 SECONDS (21-34) 10/06/16 08:46 - Constitutional Appears: Non-toxic, No Acute Distress - Head Exam Head Exam: ATRAUMATIC, NORMAL INSPECTION, NORMOCEPHALIC - Eye Exam Eye Exam: EOMI, Normal appearance, PERRL Pupil Exam: NORMAL ACCOMODATION, PERRL - ENT Exam ENT Exam: Mucous Membranes Moist, Normal Exam - Neck Exam Neck Exam: Full ROM, Normal Inspection - Respiratory Exam Respiratory Exam: Clear to Ausculation Bilateral, NORMAL BREATHING PATTERN. absent: Rales, Rhonchi, Wheezes, Respiratory Distress - Cardiovascular Exam Cardiovascular Exam: REGULAR RHYTHM, +S1, +S2 - GI/Abdominal Exam GI & Abdominal Exam: Soft, Normal Bowel Sounds. absent: Distended, Firm, Guarding, Rigid, Tenderness - Extremities Exam Extremities Exam: Full ROM, Normal Inspection. absent: Pedal Edema - Back Exam Back Exam: Full ROM, NORMAL INSPECTION - Neurological Exam Neurological Exam: Alert, Awake, CN II-XII Intact, Oriented x3 - Psychiatric Exam Psychiatric exam: Normal Affect, Normal Mood - Skin Skin Exam: Dry, Intact, Normal Color, Warm Assessment and Plan - Assessment and Plan (Free Text) Assessment: GI Bleed: Hgb 8.6 from 8.4- stable Stool for occult blood - positive Cont Protonix drip Ultram 50 mg po TID prn for moderate pain NS IVF 75 cc/hr CXR - left basilar atelectasis Afebrile, nontachycardic No leukocytosis GI following- pt had colonoscopy yesterday - limited to distal ascending colon w /fecal dis-impactin, findings positive for diverticulosis, colitis - started pt on Flagyl; tap water enemas for fecal disimpaction- will re-scope today Hx of HTN: Cozaar 100 mg po qd Norvasc 5 mg po qd Hx of Anxiety: Xanax 0.5 mg po bid prn Hx of Osteoporosis: Calcium/Vitamin D 500 mg / 200 IU 1 tab po bid Pruritic Eyes: Naphcon - opthalmic 1 drop OU qd Prophylactic Measures: GI: Protonix drip DVT: SCDs, chemical anticoagulation contraindicated due to GI bleed Dispo: repeat Colonoscopy & EGD today due to impaction yesterday FU GI recs/findings Monitor for bleeding DW attending <Waqar Damon - Last Filed: 10/07/16 18:01> Objective - Vital Signs/Intake and Output Vital Signs (last 24 hours): Temp Pulse Resp BP Pulse Ox 97.9 F 86 20 121/56 L 96 10/07/16 15:55 10/07/16 15:55 10/07/16 15:55 10/07/16 15:55 10/07/16 15:55 Intake and Output: 10/07/16 10/07/16 06:59 18:59 Intake Total 700 300 Balance 700 300 - Medications Medications: Current Medications Alprazolam (Xanax) 0.5 mg PO BID PRN PRN Reason: Anxiety Last Admin: 10/06/16 21:29 Dose: 0.5 mg Amlodipine Besylate (Norvasc) 5 mg PO DAILY [facility] Last Admin: 10/07/16 10:59 Dose: 5 mg Calcium/Vitamin D (Oyster Shell Calcium/Vitamin D 500 Mg-200 Iu) 1 tab PO BID [facility] Last Admin: 10/07/16 17:34 Dose: 1 tab Sodium Chloride (Sodium Chloride 0.9%) 1,000 mls @ 75 mls/hr IV .[id number] [facility] Last Admin: 10/07/16 17:34 Dose: Not Given Pantoprazole Sodium 80 mg/ (Sodium Chloride) 100 mls @ 10 mls/hr IVPB .Q10H [facility] PRN Reason: 8 MG/HR Last Admin: 10/07/16 14:56 Dose: 10 mls/hr Metronidazole (Flagyl) 100 mls @ 100 mls/hr IVPB Q8H [facility] Last Admin: 10/07/16 17:33 Dose: 100 mls/hr Losartan Potassium (Cozaar) 100 mg PO DAILY [facility] Last Admin: 10/07/16 10:58 Dose: 100 mg Naphazoline HCl/Pheniramine Maleate (Naphcon-A Opht) 0 ml OU DAILY [facility] Last Admin: 10/07/16 11:03 Dose: 1 drop Pneumococcal Polyvalent Vaccine (Pneumovax 23 Vaccine) 0.5 ml IM .ONCE ONE Stop: 10/08/16 10:01 Tramadol HCl (Ultram) 50 mg PO TID PRN PRN Reason: Pain, moderate (4-7) - Labs Labs: 10/07/16 07:33 10/07/16 07:33 PT 13.1 SECONDS (9.7-12.2) H 10/06/16 08:46 INR 1.2 10/06/16 08:46 APTT 30 SECONDS (21-34) 10/06/16 08:46 Attending/Attestation - Attestation I have personally seen and examined this patient.: Yes I have fully participated in the care of the patient.: Yes I have reviewed all pertinent clinical information, including history, physical exam and plan: Yes Notes (Text): 10/07/16 18:01 Patient was seen and examined at bedside with the resident today Patient does not have any further episode of bleeding We are awaiting repeat colonoscopy and EGD today Follow-up the reports Continue current medical management I agree with the above history and physical and assessment/plan by the resident.
[2016-10-07] MEDS: Sodium Chloride 0.9% 1,000 ML IV SCH ×2 (14:57→17:34)
[2016-10-08] MEDS: Pantoprazole 80 MG in Sodium Chloride 0.9% 100 ML IVPB SCH ×2 (01:00→11:40)
[2016-10-08] MEDS: metroNIDAZOLE IV 500 mg/100 ml 100 ML IVPB SCH ×2 (01:15→11:51)
[2016-10-08] MEDS: Sodium Chloride 0.9% 1,000 ML IV SCH (05:20)
[2016-10-08 08:27] VITALS: BP 147/62; PULSE 88; RESP 18; TEMP 97.4; O2SAT 98
[2016-10-08] MEDS ORDERED: Pneumococcal 23-Valent Vaccine IM ONE ×2 (10:00→13:15)
--- NOTE | 2016-10-08 10:24 | CP.PCM.DIS ---
<Peguero,Juanita - Last Filed: 10/08/16 11:31> Provider - Provider Date of Admission: 10/05/16 11:34 Attending physician: Dejuan Paniagua DO Primary care physician: Evelin Consults: Simeon Time Spent in preparation of Discharge (in minutes): 60 Hospital Course - Lab Results Lab Results: Most Recent Lab Values WBC 6.7 K/uL (4.8-10.8) 10/07/16 07:33 RBC 3.09 Mil/uL (3.80-5.20) L 10/07/16 07:33 Hgb 8.6 g/dL (11.0-16.0) L 10/07/16 07:33 Hct 26.8 % (34.0-47.0) L 10/07/16 07:33 MCV 86.6 fL (81.0-99.0) 10/07/16 07:33 MCH 27.8 pg (27.0-31.0) 10/07/16 07:33 MCHC 32.2 g/dL (33.0-37.0) L 10/07/16 07:33 RDW 13.4 % (11.5-14.5) 10/07/16 07:33 Plt Count 245 K/uL (130-400) 10/07/16 07:33 MPV 9.0 fL (7.2-11.7) 10/07/16 07:33 Neut % (Auto) 59.6 % (50.0-75.0) 10/07/16 07:33 Lymph % (Auto) 28.8 % (20.0-40.0) 10/07/16 07:33 [place] % (Auto) 7.5 % (0.0-10.0) 10/07/16 07:33 Eos % (Auto) 3.4 % (0.0-4.0) 10/07/16 07:33 Baso % (Auto) 0.7 % (0.0-2.0) 10/07/16 07:33 Neut # 4.0 K/uL (1.8-7.0) 10/07/16 07:33 Lymph # 1.9 K/uL (1.0-4.3) 10/07/16 07:33 [place] # 0.5 K/uL (0.0-0.8) 10/07/16 07:33 Eos # 0.2 K/uL (0.0-0.7) 10/07/16 07:33 Baso # 0.0 K/uL (0.0-0.2) 10/07/16 07:33 PT 13.1 SECONDS (9.7-12.2) H 10/06/16 08:46 INR 1.2 10/06/16 08:46 APTT 30 SECONDS (21-34) 10/06/16 08:46 Sodium 144 mmol/L (132-148) 10/07/16 07:33 Potassium 3.7 mmol/L (3.6-5.2) 10/07/16 07:33 Chloride 106 mmol/L (98-107) 10/07/16 07:33 Carbon Dioxide 26 mmol/L (22-30) 10/07/16 07:33 Anion Gap 16 (10-20) 10/07/16 07:33 BUN 5 mg/dL (7-17) L 10/07/16 07:33 Creatinine 0.6 MG/DL (0.7-1.2) L 10/07/16 07:33 Est GFR ( Amer) > 60 10/07/16 07:33 Est GFR (Non-Af Amer) > 60 10/07/16 07:33 Random Glucose 91 mg/dL (65-105) 10/07/16 07:33 Calcium 7.9 mg/dl (8.6-10.4) L 10/07/16 07:33 Phosphorus 2.3 mg/dL (2.5-4.5) L 10/07/16 07:33 Magnesium 2.2 mg/dL (1.6-2.3) 10/07/16 07:33 Total Bilirubin 0.3 mg/dL (0.2-1.3) 10/07/16 07:33 AST 22 U/L (14-36) 10/07/16 07:33 ALT 17 U/L (9-52) 10/07/16 07:33 Alkaline Phosphatase 54 U/L (38-126) 10/07/16 07:33 Total Protein 6.1 g/dL (6.3-8.3) L 10/07/16 07:33 Albumin 3.4 g/dL (3.5-5.0) L 10/07/16 07:33 Globulin 2.7 gm/dL (2.2-3.9) 10/07/16 07:33 Albumin/Globulin Ratio 1.2 (1.0-2.1) 10/07/16 07:33 Lipase 120 U/L (23-300) 10/05/16 10:55 Urine Color Yellow (YELLOW) 10/05/16 17:52 Urine Clarity Hazy (Clear) 10/05/16 17:52 Urine pH 8.0 (5.0-8.0) 10/05/16 17:52 Ur Specific [place] 1.010 (1.003-1.030) 10/05/16 17:52 Urine Protein Negative mg/dL (NEGATIVE) 10/05/16 17:52 Urine Glucose (UA) Normal mg/dL (Normal) 10/05/16 17:52 Urine Ketones Negative mg/dL (NEGATIVE) 10/05/16 17:52 Urine Blood Negative (NEGATIVE) 10/05/16 17:52 Urine Nitrate Negative (NEGATIVE) 10/05/16 17:52 Urine Bilirubin Negative (NEGATIVE) 10/05/16 17:52 Urine Urobilinogen Normal mg/dL (0.2-1.0) 10/05/16 17:52 Ur Leukocyte Esterase Neg Ryan/uL (Negative) 10/05/16 17:52 Urine WBC (Auto) 1 /hpf (0-5) 10/05/16 17:52 Ur Squamous Epith Cells 2 /hpf (0-5) 10/05/16 17:52 Amorphous Sediment Few /ul (<OCC) H 10/05/16 17:52 Urine Bacteria Occ (<OCC) H 10/05/16 17:52 Stool Occult Blood Positive (NEGATIVE) H 10/05/16 10:55 Blood Type B POSITIVE 10/05/16 19:20 Antibody Screen Negative 10/05/16 19:20 - Hospital Course Hospital Course: Patient is an 81 year old female with PMHx of HTN, osteoporosis and anxiety presenting for the second time this week to ER for rectal bleeding. Patient first had episode of rectal bleeding on 10/01/16. Patient and son giving history. Patient says bleeding on 10/01/16 was a little bit. They came to ER where her hgb was 10.3 and she was sent home with instructions to follow up with GI. Patient did not bleed again until this AM. Patient says she woke up and felt a "gushiness" in her underwear. It was stool mixed with blood. Patient got up and went to the toilet where more stool mixed with blood came up. She then showered. A lot of thin blood came out in the shower. Patient felt dizzy and weak at this time and continues to feel dizzy. Patient says blood has been slowly dripping out of her rectum since then. Patient says this has never happened before. Patient says she has had a problem with constipation for the past few years. Patient reports a 3 month history of epigastric pain associated with certain foods and xanax. Patient says she has a burning pain in her chest associated with nausea currently and pain in her abdomen. Patient also reports a dry cough since Thursday night. Patient denies fever, chills, cardiac pain, palpitations, SOB, vomiting, dysuria. Pt admitted to hospital for GI bleeding, placed on appropriate medications and medical intervention for GI bleeding, fluids. Pt seen/evaluated by GI with recommendations for antibiotics, colonoscopy. Patient with bowel prep for Colonoscopy/EGD on hospital day 1- colonoscopy was attempted, however pt with fecal impaction- had to be dis-impacted, prepared for colonoscopy/EGD on following day. Pt reported hematochezia resolved on hospital day 1. Patient had successful colonoscopy/EGD on hospital day 2. Findings positive for gastritis, hiatal hernia, distal esophagitis, diverticulosis, colitiis, and internal hemorrhoids- no bleeding detected. Biopsy was performed with findings of mild chronic inflammation and reactive changes. Pt stable and cleared for discharge as per Dr. Damon with instructions to start Protonix 40mg PO daily. Patient was informed of colonoscopy findings using interpretorJohnna, told to stop Pepcid and start Protonix, follow up with Dr. Waters within 1 week after discharge and follow up with Dr Alcala in 4 weeks after discharge, take antibiotic as per Dr. Alcala. Pt and son at bedside expressed understanding. Diagnoses: GI bleeding, diverticulosis, gastritis, esophagitis, hiatal hernia, colitis, internal hemorrhoids, anxiety, HTN, osteoporosis Please see EMR for full details of hospital stay. - Date & Time of H&P Date of H&P: 10/05/16 Time of H&P: 12:10 Discharge Exam - Head Exam Head Exam: ATRAUMATIC, NORMAL INSPECTION, NORMOCEPHALIC - Eye Exam Eye Exam: EOMI, Normal appearance Pupil Exam: NORMAL ACCOMODATION, PERRL - ENT Exam ENT Exam: Mucous Membranes Moist, Normal Exam - Neck Exam Neck exam: Full Rom, Normal Inspection - Respiratory Exam Respiratory Exam: Clear to PA & Lateral, NORMAL BREATHING PATTERN, UNREMARKABLE - Cardiovascular Exam Cardiovascular Exam: REGULAR RHYTHM, +S1, +S2 - GI/Abdominal Exam GI & Abdominal Exam: Normal Bowel Sounds, Soft, Unremarkable. absent: Tenderness - Extremities Exam Extremities exam: normal inspection - Back Exam Back exam: FULL ROM, NORMAL INSPECTION - Neurological Exam Neurological exam: Alert, CN II-XII Intact, Oriented x3 - Psychiatric Exam Psychiatric exam: Normal Affect, Normal Mood - Skin Skin Exam: Dry, Intact, Normal Color, Warm Discharge Plan - Discharge Medications Prescriptions: Metronidazole [Flagyl] 500 mg PO TID 30 Days Pantoprazole [Protonix] 40 mg PO DAILY #30 ect - Follow Up Plan Condition: STABLE Disposition: HOME/ ROUTINE Instructions: Metronidazole (By mouth), Pantoprazole (By mouth), Gastrointestinal Bleeding (DC) Additional Instructions: Patient cleared for discharge as per Dr. Damon. Please follow up with your primary care provider - Dr. Waters - within 1 week after discharge from hospital. You are being discharged on a medication for your stomach irritation - please take every day. You may resume your home medications, except the Pepcid, which is being replaced by Protonix - the medication for stomach irritation. Please follow up with Dr. Alcala, the business coordinator, in 4 weeks from hospitalization. You are being discharged on an antibiotic for your inflammed colon, please take as directed. Please return to the hospital if you have a recurrence of symptoms. Referrals: Brittany Alcala [Staff Provider] - Pierre Stratton MD [Staff Provider] - <Waqar Damon - Last Filed: 10/08/16 16:23> Provider - Provider Date of Admission: 10/05/16 11:34 Attending physician: Dejuan Paniagua, DO Hospital Course - Lab Results Lab Results: Most Recent Lab Values WBC 6.7 K/uL (4.8-10.8) 10/07/16 07:33 RBC 3.09 Mil/uL (3.80-5.20) L 10/07/16 07:33 Hgb 8.6 g/dL (11.0-16.0) L 10/07/16 07:33 Hct 26.8 % (34.0-47.0) L 10/07/16 07:33 MCV 86.6 fL (81.0-99.0) 10/07/16 07:33 MCH 27.8 pg (27.0-31.0) 10/07/16 07:33 MCHC 32.2 g/dL (33.0-37.0) L 10/07/16 07:33 RDW 13.4 % (11.5-14.5) 10/07/16 07:33 Plt Count 245 K/uL (130-400) 10/07/16 07:33 MPV 9.0 fL (7.2-11.7) 10/07/16 07:33 Neut % (Auto) 59.6 % (50.0-75.0) 10/07/16 07:33 Lymph % (Auto) 28.8 % (20.0-40.0) 10/07/16 07:33 [place] % (Auto) 7.5 % (0.0-10.0) 10/07/16 07:33 Eos % (Auto) 3.4 % (0.0-4.0) 10/07/16 07:33 Baso % (Auto) 0.7 % (0.0-2.0) 10/07/16 07:33 Neut # 4.0 K/uL (1.8-7.0) 10/07/16 07:33 Lymph # 1.9 K/uL (1.0-4.3) 10/07/16 07:33 [place] # 0.5 K/uL (0.0-0.8) 10/07/16 07:33 Eos # 0.2 K/uL (0.0-0.7) 10/07/16 07:33 Baso # 0.0 K/uL (0.0-0.2) 10/07/16 07:33 PT 13.1 SECONDS (9.7-12.2) H 10/06/16 08:46 INR 1.2 10/06/16 08:46 APTT 30 SECONDS (21-34) 10/06/16 08:46 Sodium 144 mmol/L (132-148) 10/07/16 07:33 Potassium 3.7 mmol/L (3.6-5.2) 10/07/16 07:33 Chloride 106 mmol/L (98-107) 10/07/16 07:33 Carbon Dioxide 26 mmol/L (22-30) 10/07/16 07:33 Anion Gap 16 (10-20) 10/07/16 07:33 BUN 5 mg/dL (7-17) L 10/07/16 07:33 Creatinine 0.6 MG/DL (0.7-1.2) L 10/07/16 07:33 Est GFR ( Amer) > 60 10/07/16 07:33 Est GFR (Non-Af Amer) > 60 10/07/16 07:33 Random Glucose 91 mg/dL (65-105) 10/07/16 07:33 Calcium 7.9 mg/dl (8.6-10.4) L 10/07/16 07:33 Phosphorus 2.3 mg/dL (2.5-4.5) L 10/07/16 07:33 Magnesium 2.2 mg/dL (1.6-2.3) 10/07/16 07:33 Total Bilirubin 0.3 mg/dL (0.2-1.3) 10/07/16 07:33 AST 22 U/L (14-36) 10/07/16 07:33 ALT 17 U/L (9-52) 10/07/16 07:33 Alkaline Phosphatase 54 U/L (38-126) 10/07/16 07:33 Total Protein 6.1 g/dL (6.3-8.3) L 10/07/16 07:33 Albumin 3.4 g/dL (3.5-5.0) L 10/07/16 07:33 Globulin 2.7 gm/dL (2.2-3.9) 10/07/16 07:33 Albumin/Globulin Ratio 1.2 (1.0-2.1) 10/07/16 07:33 Lipase 120 U/L (23-300) 10/05/16 10:55 Urine Color Yellow (YELLOW) 10/05/16 17:52 Urine Clarity Hazy (Clear) 10/05/16 17:52 Urine pH 8.0 (5.0-8.0) 10/05/16 17:52 Ur Specific [place] 1.010 (1.003-1.030) 10/05/16 17:52 Urine Protein Negative mg/dL (NEGATIVE) 10/05/16 17:52 Urine Glucose (UA) Normal mg/dL (Normal) 10/05/16 17:52 Urine Ketones Negative mg/dL (NEGATIVE) 10/05/16 17:52 Urine Blood Negative (NEGATIVE) 10/05/16 17:52 Urine Nitrate Negative (NEGATIVE) 10/05/16 17:52 Urine Bilirubin Negative (NEGATIVE) 10/05/16 17:52 Urine Urobilinogen Normal mg/dL (0.2-1.0) 10/05/16 17:52 Ur Leukocyte Esterase Neg Ryan/uL (Negative) 10/05/16 17:52 Urine WBC (Auto) 1 /hpf (0-5) 10/05/16 17:52 Ur Squamous Epith Cells 2 /hpf (0-5) 10/05/16 17:52 Amorphous Sediment Few /ul (<OCC) H 10/05/16 17:52 Urine Bacteria Occ (<OCC) H 10/05/16 17:52 Stool Occult Blood Positive (NEGATIVE) H 10/05/16 10:55 Blood Type B POSITIVE 10/05/16 19:20 Antibody Screen Negative 10/05/16 19:20 Attending/Attestation - Attestation I have personally seen and examined this patient.: Yes I have fully participated in the care of the patient.: Yes I have reviewed all pertinent clinical information, including history, physical exam and plan: Yes Notes (Text): 10/08/16 16:22 Patient was seen and examined at bedside with the resident today Patient has no new complaints. There is no further episode of GI bleeding Patient is status post EGD and colonoscopy No active source of bleeding noted We will start the patient on Protonix and discharge the patient home She'll follow with her primary medical doctor and also with the gastroenterology. Discussed the plan now. Care with the patient and her family and they verbalized understanding I discussed the plan with the resident and agree with the above discharge note by the resident
[2016-10-08] MEDS: Naphazoline-Pheniramine Ophth Soln OU SCH (11:39)
[2016-10-08] MEDS: Calcium-Vit D 500 mg-200 Units Tab UD PO SCH (11:39)
--- NOTE | 2016-10-08 12:12 | PN ---
DATE: 10/08/2016 LOCATION: 361, bed A. This is an 81-year-old female seen and examined in rounds without significant clinical changes, post upper and lower endoscopy. Pathology report is still pending. The entire chart is reviewed, includi ng but not limited to the most recent lab and radiology study results, current and the previous medic ation list, current and the previous medical events. Case discussed at length with the staff on the floor. The patient has no evidence of active bleeding, tolerating oral intake well. LABORATORY DATA: Most recent lab results showed hemoglobin is still low of 8.6 with hematocrit 26.8, but no evidence of active bleeding, with low BUN and creatinine. Low calcium was 7.9, low total pro tein 6.1, with albumin 3.4. PHYSICAL EXAMINATION: GENERAL: An 81-year-old female, appears to be awake, alert, oriented. VITAL SIGNS: Afebrile with pulse of 80, respiratory rate 20-22, blood pressure 136/66. HEENT: Showed pale, dry oral mucoid membrane. Nonicteric sclerae. LUNGS: Few scattered crepitations, decreased air entry at bases. HEART: Positive S1 and S2. ABDOMEN: Soft. Bowel sounds are present with slight generalized tenderness. No mass or organomegal y. No rebound tenderness or guarding. EXTREMITIES: Without significant edema, clubbing, or cyanosis. NEUROLOGIC: No new reported neurological deficits, sensory or motor. IMPRESSION: 1. Gastrointestinal bleeding, subsided. 2. Peptic ulcer disease. 3. Diverticulosis. 4. Internal hemorrhoids. 5. Known history of hypertension, and ____ syndrome with ____. SUGGESTION: 1. Continue current management. 2. Follow up on pathology results. 3. No need for further aggressive GI workup in the meantime. The patient is to be followed up as outpatient after 4-6 weeks. Andi Alcala MD cc: 14 TT: 10/08/2016 12:11:20 Confirmation # [id number] Dictation # [id number] [email or web address]
--- NOTE | 2016-10-08 21:37 | CON ---
DATE: 10/05/[address] Andi Alcala to Dr. Dejuan Paniagua. I was called for GI consultation by the admitting medical team. The patient is seen and fully examin ed in the Emergency Room in the presence of the medical staff as well as the patient's own son and [facility] Emergency Room staff on 10/05/2016 for GI consultation. The entire chart is reviewed, including, but not limited to, the most recent lab and radiology study results, current and previous medication lists, current and the previous medical events, allergies to medications list, as well as all the available current and the previous medical record. Case discussed at length with the staff in the Emergency Room. HISTORY OF PRESENT ILLNESS: This is an 81-year-old female who was admitted to the hospital through [facility] Emergency Room due to recurrent episodes of painless rectal bleeding, fresh blood mixed in with bl ood clots, and periods of black, tarry stool before, as per her family's statement, some of which mix es with fecal material or without fecal material, with generalized weakness and malaise, fatigue, diz ziness. No reported fevers, chest pain, or significant shortness of breath. After being admitted to the hospital, the patient was found to have low hemoglobin of 9.7 with hemato crit of 30.5, low, with increased blood glucose level to 124, increased BUN mildly to 18, but normal creatinine. PAST MEDICAL HISTORY: Including, but not limited to, hypertension, diabetes mellitus, peptic ulcer d isease, severe anxiety syndrome, as well as osteoporosis. The patient also has a history of nasal braga rgery with status post tubal ligation. CURRENT MEDICATIONS: Medication lists were reviewed. FAMILY HISTORY: Positive for father with prostate CA and a brother with GI cancers. SOCIAL HISTORY: No known history of cigarette smoking or alcohol intake. ALLERGY TO MEDICATION: Unclear. PHYSICAL EXAMINATION: GENERAL: An 81-year-old female seen with her son as the translevator, due to language barrier. 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 VITAL SIGNS: Afebrile, was pulse of 76, respiratory rate 20-22, blood pressure of 126/54. HEENT: Showed pale, dry oral mucoid membrane. Nonicteric sclerae. LYMPH NODES: No lymphadenitis or lymphadenopathy. LUNGS: Few scattered crepitation. Decreased air entry at bases. HEART: Positive S1 and S2. ABDOMEN: Soft with generalized tenderness. No mass or organomegaly. No rebound tenderness or guard ing. Bowel sounds are hyperactive. RECTAL: Positive tone with trace of fresh and old blood and blood clots, as well as traces of black, tarry stool. EXTREMITIES: Without significant clubbing, cyanosis, or edema, but with evidence of osteoarthritis. NEUROLOGIC: No reported new neurological deficits, sensory or motor. IMPRESSION: 1. Gastrointestinal bleeding, upper versus lower. 2. Rule out occult gastrointestinal malignancy. 3. Anemia secondary to above and/or chronic disease. 4. Multiple past medical histories including, but not limited to, hypertension, severe anxiety syndr ome, osteoporosis, diabetes mellitus, as well as peptic ulcer disease, with status post tubal ligatio n and nasal surgery. SUGGESTION: 1. Agree with your plan. 2. Cancer markers. 3. Correct any underlying electrolyte imbalance. 4. Rehydration. 5. Blood transfusions as needed to keep hemoglobin around 10 g%. 6. Proton pump inhibitors. 7. Endoscopic evaluation of the GI tract when the patient is more stable clinically, including upper and lower endoscopy. 8. Further recommendations to follow. Thank you for letting me participate in your patient's case management. Andi Alcala MD cc:Andi Alcala MD 14 TT: 10/08/2016 21:36:46 Confirmation # [id number] Dictation # [id number] dn
== END 2016-10-08 14:20 | disposition home or self-care (01) | DRG 175 ==
LOC: C.ER 10:12 → C.9E 11:34 → C.3T 11:52
PROVIDERS: ADMIT Hospitalist; ATTEND Hospitalist
PROC: 0DB68ZX Excision of Stomach, Via Natural or Artificial Opening Endoscopic, Diagnostic (ICD-10-PCS; principal; 2016-10-07 08:45)
PROC: 0DBM8ZX Excision of Descending Colon, Via Natural or Artificial Opening Endoscopic, Diagnostic (ICD-10-PCS; 2016-10-07 08:45)
DX: K92.2 Gastrointestinal hemorrhage, unspecified (principal); D50.0 Iron deficiency anemia secondary to blood loss (chronic); E11.9 Type 2 diabetes mellitus without complications; I10 Essential (primary) hypertension; D63.8 Anemia in other chronic diseases classified elsewhere; K52.9 Noninfective gastroenteritis and colitis, unspecified; K57.30 Diverticulosis of large intestine without perforation or abscess without bleeding; K29.00 Acute gastritis without bleeding; K21.0 Gastro-esophageal reflux disease with esophagitis; K64.8 Other hemorrhoids; K44.9 Diaphragmatic hernia without obstruction or gangrene; M81.0 Age-related osteoporosis without current pathological fracture; F41.9 Anxiety disorder, unspecified; Z80.0 Family history of malignant neoplasm of digestive organs; Z23 Encounter for immunization

== ENCOUNTER 2017-01-31 10:13 | Inpatient (IN) | payer MEDICARE, MEDICAID ==
[2017-01-31 10:13] VITALS: BMI 22.6
[2017-01-31] MEDS ORDERED: Sodium Chloride 0.9% 500 ML IV STA (11:32)
[2017-01-31 11:44] LABS: BASO # 0.1 K/uL (0.0-0.2); BASO % 0.8 % (0.0-2.0); EOS # 0.1 K/uL (0.0-0.7); EOS % 0.5 % (0.0-4.0); HEMOGLOBIN 9.2 g/dL (11.0-16.0); LYMPH # 1.1 K/uL (1.0-4.3); LYMPH % 9.2 % (20.0-40.0); MEAN CELL VOLUME 70.7 fL (81.0-99.0); MEAN CORPUSCULAR HEMOGLOBIN 21.5 pg (27.0-31.0); MEAN CORPUSCULAR HGB CONC 30.4 g/dL (33.0-37.0); MEAN PLATELET VOLUME 8.7 fL (7.2-11.7); MONO # 0.6 K/uL (0.0-0.8); MONO % 5.1 % (0.0-10.0); NEUT % 84.4 % (50.0-75.0); PLATELET COUNT 335 K/uL (130-400); RBC 4.27 Mil/uL (3.80-5.20); RED CELL DISTRIBUTION WIDTH 20.8 % (11.5-14.5); WHITE BLOOD COUNT 11.9 K/uL (4.8-10.8)
[2017-01-31 11:52] LABS: INR 1.1; PROTHROMBIN TIME 12.1 SECONDS (9.7-12.2)
[2017-01-31 11:53] LABS: ALBUMIN 3.8 g/dL (3.5-5.0)
[2017-01-31 11:56] LABS: ALB/GLOB RATIO 1.1 (1.0-2.1); AMYLASE 129 U/L (30-110); AST/SGOT 20 U/L (14-36); BLOOD UREA NITROGEN 16 mg/dL (7-17); GFR AFRICAN-AMERICAN > 60; GFR NON-AFRICAN AMERICAN > 60
[2017-01-31 11:57] LABS: ALT/SGPT 27 U/L (9-52); CALCIUM 9.1 mg/dl (8.6-10.4); LIPASE 109 U/L (23-300)
[2017-01-31 12:05] LABS: CK-MB 0.62 ng/mL (0.0-3.38); SQUAMOUS EPITHIAL 2 /hpf (0-5); URINE BACTERIA MOD (<OCC); URINE BILIRUBIN NEGATIVE (NEGATIVE); URINE BLOOD 3+ (NEGATIVE); URINE CLARITY Hazy (Clear); URINE COLOR Yellow (YELLOW); URINE GLUCOSE (UA) 1+ mg/dL (Normal); URINE LEUKOCYTE ESTERASE 3+ Leu/uL (Negative); URINE NITRATE NEGATIVE (NEGATIVE); URINE PROTEIN 1+ mg/dL (NEGATIVE); URINE UROBILINOGEN NORMAL mg/dL (0.2-1.0); WBC CLUMPS FEW /hpf
--- NOTE | 2017-01-31 12:13 | C.PDOC ---
History Of Present Illness Miguelina Pascal, an 81 year old female, who has a past medical history of hyperlipidemia, hypertension and anxiety presents to the ED complaining of pain in her kidneys x5-6 days. The patient states that the pain radiates to her lower abdomen and flank. She states that she also notes some leg swelling and dysuria. The patient states that her legs have never gotten swollen before and this only happens in the afternoon. Patient also complains of having 3-4 days of intermittent chest pain. Patient also notes a cough. PMD: Pierre Galdamez Time Seen by Provider: 01/31/17 10:33 Chief Complaint (Nursing): Chest Pain History Per: Patient History/Exam Limitations: no limitations Onset/Duration Of Symptoms: Days (5-6 days of painful kidneys), Intermittent Episodes (3-4 days on intermittent chest pain) Current Symptoms Are (Timing): Still Present Past Medical History Reviewed: Historical Data, Nursing Documentation, Vital Signs Vital Signs: Last Vital Signs Temp 97.9 F 01/31/17 17:00 Pulse 71 01/31/17 17:00 Resp 20 01/31/17 17:00 BP 138/71 01/31/17 17:00 Pulse Ox 98 01/31/17 17:00 - Medical History PMH: Anxiety, Diabetes, HTN, Hypercholesterolemia, Hyperlipidemia, Osteoporosis Denies: Anemia, Chronic Kidney Disease - [facility] Procedures ANT NASAL PACK FOR EPIST (05/26/14) EXCISION OF DESCENDING COLON, ENDO, DIAGN (10/05/16) EXCISION OF STOMACH, ENDO, DIAGN (10/05/16) Family History: States: Unknown Family Hx - Social History Hx Tobacco Use: No Hx Alcohol Use: No Hx Substance Use: No - Immunization History Hx Tetanus Toxoid Vaccination: No Hx Influenza Vaccination: Yes Hx Pneumococcal Vaccination: No Review Of Systems Except As Marked, All Systems Reviewed And Found Negative. Cardiovascular: Positive for: Chest Pain (3-4 days intermittent chest pain) Respiratory: Positive for: Cough Gastrointestinal: Positive for: Abdominal Pain (5-6 days pain in the kidneys ) Genitourinary: Positive for: Dysuria Physical Exam - Physical Exam Appears: Well, Non-toxic, No Acute Distress Skin: Normal Color, Warm, Dry Head: Atraumatic, Normacephalic, No Tenderness Eye(s): bilateral: Normal Inspection, PERRL, EOMI Nose: Normal Oral Mucosa: Moist Tongue: Normal Appearing Lips: Normal Appearing Teeth: Normal Dentition Gingiva: Normal Appearing Throat: Normal Neck: Normal, Normal ROM, Supple Cardiovascular: Rhythm Regular, No Murmur Respiratory: Normal Breath Sounds, No Wheezing Gastrointestinal/Abdominal: Bowel Sounds, Soft, Tenderness (Suprapubic tendernes ), No Mass, No Guarding, No Rebound Back: Normal Inspection, CVA Tenderness (right sided CVA tenderness) Extremity: Normal ROM, No Tenderness, No Deformity, No Swelling Neurological/Psych: Oriented x3, Normal Speech, Normal Cognition ED Course And Treatment - Laboratory Results Result Diagrams: 01/31/17 11:40 01/31/17 11:40 ECG Rhythm: Sinus Rhythm ECG Interpretation: No Acute Changes Rate From EC O2 Sat by Pulse Oximetry: 99 (RA) Pulse Ox Interpretation: Normal Medical Decision Making Medical Decision Makin Initial Impression: 81 year old female presenting with pain in kidneys and chest pain Initial Plan: * Amylase * CK-MB * Comp Metabolic Panel * Creatinine Phophokinase * Lipase * Troponin * CBC * Partial thromboplastin time * Prothrombin time * NS 1000mls IV 1000mls/hr * Urine Culture * Urinalysis * Reevaluation * * Labs significant to leucocytosis, UA is consistent with UTI. Rocephin IVPB ordered. the fist set of cardiac enzymes is negative. Case was d/w who accepted patient admission. Disposition - Disposition Disposition: HOSPITALIZED Disposition Time: 15:04 Condition: FAIR - Clinical Impression Clinical Impression: Chest pain, Pyelonephritis - Scribe Statement The provider has reviewed the documentation as recorded by the Sadaibashkan Draper All medical record entries made by the Poornima were at my direction and personally dictated by me. I have reviewed the chart and agree that the record accurately reflects my personal performance of the history, physical exam, medical decision making, and the department course for this patient. I have also personally directed, reviewed, and agree with the discharge instructions and disposition. Decision To Admit - Pt Status Changed To: Hospital Disposition Of: Inpatient - Admit Certification Admit to Inpatient:: After my assessment, the patient will require hospitalization for at least two midnights. This is because of the severity of symptoms shown, intensity of services needed, and/or the medical risk in this patient being treated as an outpatient. - InPatient: Physician Admission Certification: I certify that this patient requires 2 or more midnights of care for the following reason:: Patient will need more than 2 days of IV antibiotics for pyelonephritis. - . Bed Request Type: Telemetry Patient Diagnosis: Chest pain, Pyelonephritis
[2017-01-31 12:28] LABS: ANISOCYTOSIS MODERATE; LYMPHOCYTE 9 % (20-40); MICROCYTOSIS SLIGHT; MONOCYTE 4 % (0-10); NEUTROPHIL 87 % (50-75); PLATELET ESTIMATE NORMAL (NORMAL); POIKILOCYTOSIS SLIGHT; TOTAL CELLS COUNTED 100
[2017-01-31 12:29] LABS: HYPOCHROMIC SLIGHT; OVALOCYTES SLIGHT; TARGET CELLS SLIGHT
[2017-01-31] MEDS ORDERED: cefTRIAXone IV 1 gm in Dextros 50 ML IVPB STA (14:17)
[2017-01-31] MEDS ORDERED: cefTRIAXone IV 1 gm in Dextros 50 ML IVPB ONE (14:29)
--- NOTE | 2017-01-31 16:52 | CP.PCM.HP ---
<Michelle Jarrell - Last Filed: 01/31/17 18:39> History of Present Illness - History of Present Illness History of Present Illness: CC: "pain with urination" HPI: Patient is an 81 year old female with PMHx of HTN, osteoporosis and anxiety presenting for 3 days of painful urination and urinary frequency. She states that she did not call her primary doctor because she had an appointment coming up. She denies blood in the urine, fever/chills, abdominal pain or back pain. She states she only has abdominal pain when she urinates. She denied chest pain or shortness of breath but reported chest pain when presenting at the ED today. She had no other acute complaints. Patient denies fever, chills, cardiac pain, palpitations, SOB, vomiting, nausea, numbness or weakness. 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 Stratton Present on Admission - Present on Admission Any Indicators Present on Admission: No Review of Systems - Constitutional Constitutional: absent: Chills, Fever - EENT Eyes: absent: Blurred Vision, Change in Vision Ears: absent: Dizziness - Cardiovascular Cardiovascular: absent: Chest Pain, Chest Pain at Rest, Palpitations - Respiratory Respiratory: absent: Cough, Dyspnea, Dyspnea on Exertion - Gastrointestinal Gastrointestinal: absent: Abdominal Pain, Constipation, Diarrhea, Nausea, Vomiting - Genitourinary Genitourinary: Change in Urinary Stream, Dysuria, Urinary Frequency, Urinary Urgency. absent: Difficulty Urinating, Flank Pain, Hematuria, Pyuria - Musculoskeletal Musculoskeletal: absent: Abnormal Gait, Numbness, Tingling - Neurological Neurological: absent: Syncope Past Patient History - Past Medical History & Family History Past Medical History?: Yes - Past Social History Smoking Status: Never Smoked - CARDIAC Hx Hypercholesterolemia: Yes Hx Hypertension: Yes - PULMONARY Hx Respiratory Disorders: No - NEUROLOGICAL Hx Neurological Disorder: No - HEENT Hx HEENT Problems: No - RENAL Hx Chronic Kidney Disease: No - ENDOCRINE/METABOLIC Hx Diabetes Mellitus Type 2: Yes - HEMATOLOGICAL/ONCOLOGICAL Hx Anemia: No - INTEGUMENTARY Hx Dermatological Problems: No - MUSCULOSKELETAL/RHEUMATOLOGICAL Hx Osteoporosis: Yes - GASTROINTESTINAL Hx Gastrointestinal Disorders: Yes Other/Comment: rectal bleed on 10/01/16 - GENITOURINARY/GYNECOLOGICAL Hx Genitourinary Disorders: No - PSYCHIATRIC Hx Anxiety: Yes Hx Substance Use: No - SURGICAL HISTORY Hx Surgeries: Yes Hx Tubal Ligation: Yes Other/Comment: nasal surgery years ago - ANESTHESIA Hx Anesthesia: No Hx Anesthesia Reactions: No Meds Home Medications: Home Medication List Medication Instructions Recorded Confirmed Type Ciprofloxacin HCl [Cipro] 500 mg PO BID #6 tablet 02/01/17 Rx Allergies/Adverse Reactions: Allergies Allergy/AdvReac Type Severity Reaction Status Date / Time shrimp Allergy Verified 01/31/17 10:23 Physical Exam - Constitutional Appears: Non-toxic, No Acute Distress - Head Exam Head Exam: ATRAUMATIC, NORMAL INSPECTION - Eye Exam Eye Exam: EOMI, Normal appearance, PERRL Pupil Exam: NORMAL ACCOMODATION - ENT Exam ENT Exam: Mucous Membranes Moist - Respiratory Exam Respiratory Exam: Clear to Auscultation Bilateral, NORMAL BREATHING PATTERN. absent: Rales, Rhonchi, Wheezes, Respiratory Distress - Cardiovascular Exam Cardiovascular Exam: REGULAR RHYTHM, +S1, +S2. absent: Systolic Murmur - GI/Abdominal Exam GI & Abdominal Exam: Normal Bowel Sounds, Soft. absent: Distended, Firm, Guarding, Tenderness - Extremities Exam Extremities exam: Positive for: normal inspection, pedal edema. Negative for: calf tenderness - Back Exam Back exam: NORMAL INSPECTION. absent: CVA tenderness (L), CVA tenderness (R), paraspinal tenderness - Neurological Exam Neurological exam: Alert, CN II-XII Intact, Normal Gait, Oriented x3 - Psychiatric Exam Psychiatric exam: Normal Affect, Normal Mood - Skin Skin Exam: Dry, Intact, Normal Color, Warm Results - Vital Signs Recent Vital Signs: Last Vital Signs Temp 97.6 F 01/31/17 16:27 Pulse 74 01/31/17 16:27 Resp 16 01/31/17 16:27 BP 139/61 01/31/17 16:27 Pulse Ox 99 01/31/17 16:27 - Labs Result Diagrams: 01/31/17 11:40 01/31/17 11:40 Assessment & Plan - Assessment and Plan (Free Text) Assessment: UTI 1+ protein, 3+ blood, 3+ LE, 750 WBC, 86 RBC, mod bacteria f/u urine culture f/u blood culture f/u renal US Ceftriaxone 1 gram IVPB daily Afebrile, WBC 11.9 no bandemia, no CVA/abdominal tenderness f/u am labs Chest pain WHIT negative x 1, will trend f/u EKG f/u CHest Xray Holter and Stress test negative within the last year Patient is currently denying chest pain or shortness of breath now but reported to ED. HTN Cozaar 100 mg po qd Norvasc 5 mg po qd Hx of Anxiety Xanax 0.5 mg po bid prn can give as needed Osteoporosis Calcium/Vitamin D 500 mg / 200 IU 1 tab po bid on Alendronate at home last dose 01/24 Prophylactic Measures: Pepcid 20mg PO daily SCDS Patient ambulating Dispo: Likely dc tomorrow on abx, watch for signs of sepsis or changes in mental status <Waqar Damon - Last Filed: 02/01/17 14:29> Results - Vital Signs Recent Vital Signs: Last Vital Signs Temp 98.4 F 02/01/17 08:00 Pulse 81 02/01/17 08:00 Resp 18 02/01/17 08:00 BP 128/70 02/01/17 08:00 Pulse Ox 96 02/01/17 08:00 - Labs Result Diagrams: 02/01/17 07:17 02/01/17 07:17 Labs: Laboratory Results - last 24 hr 01/31/17 01/31/17 01/31/17 18:39 21:24 23:53 WBC RBC Hgb Hct MCV MCH MCHC RDW Plt Count MPV Neut % (Auto) Lymph % (Auto) Simpson % (Auto) Eos % (Auto) Baso % (Auto) Neut # Lymph # Simpson # Eos # Baso # Sodium Potassium Chloride Carbon Dioxide Anion Gap BUN Creatinine Est GFR ( Amer) Est GFR (Non-Af Amer) POC Glucose (mg/dL) 104 Random Glucose Calcium Total Bilirubin AST ALT Alkaline Phosphatase Total Creatine Kinase 92 81 CK-MB (Mass) 0.91 0.75 Troponin I, Quant < 0.0120 < 0.0120 Total Protein Albumin Globulin Albumin/Globulin Ratio Triglycerides Cholesterol LDL Cholesterol Direct HDL Cholesterol Thyroxine (T4) TSH 3rd Generation 02/01/17 02/01/17 02/01/17 07:17 07:17 11:27 WBC 8.5 RBC 4.32 Hgb 9.4 L Hct 30.1 L MCV 69.8 L MCH 21.7 L MCHC 31.1 L RDW 20.7 H Plt Count 342 MPV 8.5 Neut % (Auto) 61.8 Lymph % (Auto) 27.4 Simpson % (Auto) 7.1 Eos % (Auto) 2.7 Baso % (Auto) 1.0 Neut # 5.3 Lymph # 2.3 Simpson # 0.6 Eos # 0.2 Baso # 0.1 Sodium 142 Potassium 4.7 Chloride 101 Carbon Dioxide 26 Anion Gap 19 BUN 17 Creatinine 0.8 Est GFR ( Amer) > 60 Est GFR (Non-Af Amer) > 60 POC Glucose (mg/dL) 116 H Random Glucose 94 Calcium 9.5 Total Bilirubin 0.5 AST 25 ALT 23 Alkaline Phosphatase 67 Total Creatine Kinase CK-MB (Mass) Troponin I, Quant Total Protein 7.4 Albumin 3.8 Globulin 3.7 Albumin/Globulin Ratio 1.0 Triglycerides 76 Cholesterol 208 H LDL Cholesterol Direct 133 H HDL Cholesterol 55 Thyroxine (T4) 6.23 TSH 3rd Generation 1.25 Attending/Attestation - Attestation I have personally seen and examined this patient.: Yes I have fully participated in the care of the patient.: Yes I have reviewed all pertinent clinical information: Yes Notes (Text): 02/01/17 14:28 Patient was seen and examined at bedside with the resident time of admission I discussed the plan of care of the resident We will admit the patient for UTI and rule out polyarthritis We will also rule out acute coronary syndrome by doing serial troponins I discussed the plan of care with the resident and agree with the assessment and plan documented above.
[2017-01-31 19:06] LABS: CK-MB 0.91 ng/mL (0.0-3.38)
[2017-02-01 00:23] LABS: CK-MB 0.75 ng/mL (0.0-3.38)
[2017-02-01 07:40] LABS: BASO # 0.1 K/uL (0.0-0.2); EOS # 0.2 K/uL (0.0-0.7); EOS % 2.7 % (0.0-4.0); HEMOGLOBIN 9.4 g/dL (11.0-16.0); LYMPH # 2.3 K/uL (1.0-4.3); LYMPH % 27.4 % (20.0-40.0); MEAN CELL VOLUME 69.8 fL (81.0-99.0); MEAN CORPUSCULAR HEMOGLOBIN 21.7 pg (27.0-31.0); MEAN CORPUSCULAR HGB CONC 31.1 g/dL (33.0-37.0); MEAN PLATELET VOLUME 8.5 fL (7.2-11.7); MONO # 0.6 K/uL (0.0-0.8); MONO % 7.1 % (0.0-10.0); NEUT # 5.3 K/uL (1.8-7.0); NEUT % 61.8 % (50.0-75.0); RBC 4.32 Mil/uL (3.80-5.20); RED CELL DISTRIBUTION WIDTH 20.7 % (11.5-14.5); WHITE BLOOD COUNT 8.5 K/uL (4.8-10.8)
[2017-02-01 07:58] LABS: ALBUMIN 3.8 g/dL (3.5-5.0)
[2017-02-01 08:00] VITALS: RESP 18; TEMP 98.4; O2SAT 96
[2017-02-01 08:01] LABS: ALT/SGPT 23 U/L (9-52); AST/SGOT 25 U/L (14-36); BLOOD UREA NITROGEN 17 mg/dL (7-17); GFR AFRICAN-AMERICAN > 60; GFR NON-AFRICAN AMERICAN > 60
[2017-02-01 08:02] LABS: CALCIUM 9.5 mg/dl (8.6-10.4); HDL CHOLESTEROL 55 mg/dL (30-70)
[2017-02-01 08:18] LABS: T4 6.23 ug/dL (5.5-11.0)
[2017-02-01 08:19] LABS: LDL CHOLESTEROL 133 mg/dL (0-129)
--- NOTE | 2017-02-01 08:45 | RAD ---
Chest x-ray single frontal view History: Chest pain. Comparison: 10/05/2016 Findings: Biapical pleural thickening with upper lobe granulomatous changes. Dense linear consolidative changes noted at the left lung base suggestive for atelectasis versus scarring versus infiltrate. Clinical correlation. Diffuse increased interstitial lung markings. Scattered nodularity throughout both lungs. Calcification at the aortic knob. Heart size within normal limits. Degenerative changes in the spine and shoulders. Impression: Biapical pleural thickening with upper lobe granulomatous changes. Dense linear consolidative changes noted at the left lung base suggestive for atelectasis versus scarring versus infiltrate. Clinical correlation. Diffuse increased interstitial lung markings. Scattered nodularity throughout both lungs.
--- NOTE | 2017-02-01 12:06 | CP.PCM.DIS ---
<Michelle Jarrell - Last Filed: 02/01/17 15:17> Provider - Provider Date of Admission: 01/31/17 15:00 Attending physician: Waqar Damon MD Primary care physician: Dr. Stratton Consults: none Time Spent in preparation of Discharge (in minutes): 35 Diagnosis - Discharge Diagnosis (1) Urinary tract infection Status: Acute Comment: Cipro PO BID. f/u primary care Hospital Course - Lab Results Lab Results: Most Recent Lab Values WBC 8.5 K/uL (4.8-10.8) 02/01/17 07:17 RBC 4.32 Mil/uL (3.80-5.20) 02/01/17 07:17 Hgb 9.4 g/dL (11.0-16.0) L 02/01/17 07:17 Hct 30.1 % (34.0-47.0) L 02/01/17 07:17 MCV 69.8 fL (81.0-99.0) L 02/01/17 07:17 MCH 21.7 pg (27.0-31.0) L 02/01/17 07:17 MCHC 31.1 g/dL (33.0-37.0) L 02/01/17 07:17 RDW 20.7 % (11.5-14.5) H 02/01/17 07:17 Plt Count 342 K/uL (130-400) 02/01/17 07:17 MPV 8.5 fL (7.2-11.7) 02/01/17 07:17 Neut % (Auto) 61.8 % (50.0-75.0) 02/01/17 07:17 Lymph % (Auto) 27.4 % (20.0-40.0) 02/01/17 07:17 [place] % (Auto) 7.1 % (0.0-10.0) 02/01/17 07:17 Eos % (Auto) 2.7 % (0.0-4.0) 02/01/17 07:17 Baso % (Auto) 1.0 % (0.0-2.0) 02/01/17 07:17 Neut # 5.3 K/uL (1.8-7.0) 02/01/17 07:17 Lymph # 2.3 K/uL (1.0-4.3) 02/01/17 07:17 [place] # 0.6 K/uL (0.0-0.8) 02/01/17 07:17 Eos # 0.2 K/uL (0.0-0.7) 02/01/17 07:17 Baso # 0.1 K/uL (0.0-0.2) 02/01/17 07:17 Neutrophils % (Manual) 87 % (50-75) H 01/31/17 11:40 Lymphocytes % (Manual) 9 % (20-40) L 01/31/17 11:40 Monocytes % (Manual) 4 % (0-10) 01/31/17 11:40 Platelet Estimate Normal (NORMAL) 01/31/17 11:40 Hypochromasia (manual) Slight 01/31/17 11:40 Poikilocytosis (manual Slight 01/31/17 11:40 Anisocytosis (manual) Moderate 01/31/17 11:40 Microcytosis (manual) Slight 01/31/17 11:40 Target Cells Slight 01/31/17 11:40 Ovalocytes Slight 01/31/17 11:40 PT 12.1 SECONDS (9.7-12.2) 01/31/17 11:40 INR 1.1 01/31/17 11:40 APTT 31 SECONDS (21-34) 01/31/17 11:40 Sodium 142 mmol/L (132-148) 02/01/17 07:17 Potassium 4.7 mmol/L (3.6-5.2) 02/01/17 07:17 Chloride 101 mmol/L (98-107) 02/01/17 07:17 Carbon Dioxide 26 mmol/L (22-30) 02/01/17 07:17 Anion Gap 19 (10-20) 02/01/17 07:17 BUN 17 mg/dL (7-17) 02/01/17 07:17 Creatinine 0.8 MG/DL (0.7-1.2) 02/01/17 07:17 Est GFR ( Amer) > 60 02/01/17 07:17 Est GFR (Non-Af Amer) > 60 02/01/17 07:17 POC Glucose (mg/dL) 116 mg/dL (65-110) H 02/01/17 11:27 Random Glucose 94 mg/dL (65-105) 02/01/17 07:17 Calcium 9.5 mg/dl (8.6-10.4) 02/01/17 07:17 Total Bilirubin 0.5 mg/dL (0.2-1.3) 02/01/17 07:17 AST 25 U/L (14-36) 02/01/17 07:17 ALT 23 U/L (9-52) 02/01/17 07:17 Alkaline Phosphatase 67 U/L (38-126) 02/01/17 07:17 Total Creatine Kinase 81 U/L (30-135) 01/31/17 23:53 CK-MB (Mass) 0.75 ng/mL (0.0-3.38) 01/31/17 23:53 Troponin I < 0.0120 ng/mL (0.00-0.120) 01/31/17 11:40 Troponin I, Quant < 0.0120 ng/mL (0.00-0.120) 01/31/17 23:53 Total Protein 7.4 g/dL (6.3-8.3) 02/01/17 07:17 Albumin 3.8 g/dL (3.5-5.0) 02/01/17 07:17 Globulin 3.7 gm/dL (2.2-3.9) 02/01/17 07:17 Albumin/Globulin Ratio 1.0 (1.0-2.1) 02/01/17 07:17 Triglycerides 76 mg/dL (0-149) 02/01/17 07:17 Cholesterol 208 mg/dL (0-199) H 02/01/17 07:17 LDL Cholesterol Direct 133 mg/dL (0-129) H 02/01/17 07:17 HDL Cholesterol 55 mg/dL (30-70) 02/01/17 07:17 Amylase 129 U/L (30-110) H 01/31/17 11:40 Lipase 109 U/L (23-300) 01/31/17 11:40 Thyroxine (T4) 6.23 ug/dL (5.5-11.0) 02/01/17 07:17 TSH 3rd Generation 1.25 mIU/L (0.46-4.68) 02/01/17 07:17 Urine Color Yellow (YELLOW) 01/31/17 11:40 Urine Clarity Hazy (Clear) 01/31/17 11:40 Urine pH 6.0 (5.0-8.0) 01/31/17 11:40 Ur Specific [place] 1.011 (1.003-1.030) 01/31/17 11:40 Urine Protein 1+ mg/dL (NEGATIVE) H 01/31/17 11:40 Urine Glucose (UA) 1+ mg/dL (Normal) 01/31/17 11:40 Urine Ketones Negative mg/dL (NEGATIVE) 01/31/17 11:40 Urine Blood 3+ (NEGATIVE) H 01/31/17 11:40 Urine Nitrate Negative (NEGATIVE) 01/31/17 11:40 Urine Bilirubin Negative (NEGATIVE) 01/31/17 11:40 Urine Urobilinogen Normal mg/dL (0.2-1.0) 01/31/17 11:40 Ur Leukocyte Esterase 3+ Ryan/uL (Negative) H 01/31/17 11:40 Urine WBC (Auto) 750 /hpf (0-5) H 01/31/17 11:40 Urine RBC (Auto) 86 /hpf (0-3) H 01/31/17 11:40 Urine WBC Clumps (Auto) Few /hpf (NONE) H 01/31/17 11:40 Ur Squamous Epith Cells 2 /hpf (0-5) 01/31/17 11:40 Urine Bacteria Mod (<OCC) H 01/31/17 11:40 - Hospital Course Hospital Course: On admission: Patient is an 81 year old female with PMHx of HTN, osteoporosis and anxiety presenting for 3 days of painful urination and urinary frequency. She states that she did not call her primary doctor because she had an appointment coming up. She denies blood in the urine, fever/chills, abdominal pain or back pain. She states she only has abdominal pain when she urinates. She denied chest pain or shortness of breath but reported chest pain when presenting at the ED today. She had no other acute complaints. Patient denies fever, chills, cardiac pain, palpitations, SOB, vomiting, nausea, numbness or weakness. During hospital stay: UA showed 1+ protein, 3+ blood, 3+ LE, 750 WBC, 86 RBC, mod bacteria. Patient was given IV Ceftriaxone. She reported improvement with dysuria overnight. She was afebrile for 24 hours and did not show signs of sepsis or altered mental status. Urine culture showed gram negative rods. Reanl US showed increased echogenicity of the b/l renal cortices suggestive of medical renal disease, and 2.7 cm lower pole hypoechoic right renal cyst. No evidence of hydronephrosis. She was non tender CVA and flank. No sign of pyelonephritis. Patient is stable for discharge home per Dr. Damon. Patient is to continue all of her home medications and in addition take Ciprofloxacin 500mg by mouth twice a day for 3 days. She is call and make an appointment to follow up with her primary care Dr. Stratton for her urinary tract infection. Patient is to return to the emergency room if symptoms return or do nor improve. All instructions explained to the patient and she agrees. Medication was sent electronically to the patient's preferred pharmacy. Discharge Exam - Head Exam Head Exam: ATRAUMATIC, NORMAL INSPECTION - Eye Exam Eye Exam: EOMI, Normal appearance, PERRL Pupil Exam: NORMAL ACCOMODATION - Respiratory Exam Respiratory Exam: Clear to PA & Lateral, NORMAL BREATHING PATTERN. absent: Accessory Muscle Use, Rales, Rhonchi, Wheezes, Respiratory Distress - Cardiovascular Exam Cardiovascular Exam: REGULAR RHYTHM, +S1, +S2 - GI/Abdominal Exam GI & Abdominal Exam: Normal Bowel Sounds, Soft. absent: Distended, Firm, Guarding, Tenderness - Extremities Exam Extremities exam: calf tenderness, normal inspection, pedal edema - Back Exam Back exam: NORMAL INSPECTION. absent: CVA tenderness (L), CVA tenderness (R), paraspinal tenderness - Neurological Exam Neurological exam: Alert, CN II-XII Intact, Normal Gait, Oriented x3, Reflexes Normal - Psychiatric Exam Psychiatric exam: Normal Affect, Normal Mood - Skin Skin Exam: Dry, Intact, Normal Color, Warm Discharge Plan - Discharge Medications Prescriptions: Ciprofloxacin HCl [Cipro] 500 mg PO BID #6 tablet - Follow Up Plan Condition: GOOD Disposition: HOME/ ROUTINE Instructions: Ciprofloxacin (By mouth), Influenza Virus Vaccine (By injection) , Chest Pain (DC), Pneumococcal Vaccine for Adults (DC), Urinary Tract Infection in Women (DC), Acute Pyelonephritis (DC) Additional Instructions: Patient is stable for discharge home per Dr. Damon. Patient is to continue all of her home medications and in addition take Ciprofloxacin 500mg by mouth twice a day for 3 days. She is call and make an appointment to follow up with her primary care Dr. Stratton for her urinary tract infection. Patient is to return to the emergency room if symptoms return or do nor improve. All instructions explained to the patient and she agrees. Referrals: Pierre Stratton MD [Staff Provider] - <Waqar Damon - Last Filed: 02/01/17 15:32> Provider - Provider Date of Admission: 01/31/17 15:00 Attending physician: Waqar Damon MD Hospital Course - Lab Results Lab Results: Most Recent Lab Values WBC 8.5 K/uL (4.8-10.8) 02/01/17 07:17 RBC 4.32 Mil/uL (3.80-5.20) 02/01/17 07:17 Hgb 9.4 g/dL (11.0-16.0) L 02/01/17 07:17 Hct 30.1 % (34.0-47.0) L 02/01/17 07:17 MCV 69.8 fL (81.0-99.0) L 02/01/17 07:17 MCH 21.7 pg (27.0-31.0) L 02/01/17 07:17 MCHC 31.1 g/dL (33.0-37.0) L 02/01/17 07:17 RDW 20.7 % (11.5-14.5) H 02/01/17 07:17 Plt Count 342 K/uL (130-400) 02/01/17 07:17 MPV 8.5 fL (7.2-11.7) 02/01/17 07:17 Neut % (Auto) 61.8 % (50.0-75.0) 02/01/17 07:17 Lymph % (Auto) 27.4 % (20.0-40.0) 02/01/17 07:17 [place] % (Auto) 7.1 % (0.0-10.0) 02/01/17 07:17 Eos % (Auto) 2.7 % (0.0-4.0) 02/01/17 07:17 Baso % (Auto) 1.0 % (0.0-2.0) 02/01/17 07:17 Neut # 5.3 K/uL (1.8-7.0) 02/01/17 07:17 Lymph # 2.3 K/uL (1.0-4.3) 02/01/17 07:17 [place] # 0.6 K/uL (0.0-0.8) 02/01/17 07:17 Eos # 0.2 K/uL (0.0-0.7) 02/01/17 07:17 Baso # 0.1 K/uL (0.0-0.2) 02/01/17 07:17 Neutrophils % (Manual) 87 % (50-75) H 01/31/17 11:40 Lymphocytes % (Manual) 9 % (20-40) L 01/31/17 11:40 Monocytes % (Manual) 4 % (0-10) 01/31/17 11:40 Platelet Estimate Normal (NORMAL) 01/31/17 11:40 Hypochromasia (manual) Slight 01/31/17 11:40 Poikilocytosis (manual Slight 01/31/17 11:40 Anisocytosis (manual) Moderate 01/31/17 11:40 Microcytosis (manual) Slight 01/31/17 11:40 Target Cells Slight 01/31/17 11:40 Ovalocytes Slight 01/31/17 11:40 PT 12.1 SECONDS (9.7-12.2) 01/31/17 11:40 INR 1.1 01/31/17 11:40 APTT 31 SECONDS (21-34) 01/31/17 11:40 Sodium 142 mmol/L (132-148) 02/01/17 07:17 Potassium 4.7 mmol/L (3.6-5.2) 02/01/17 07:17 Chloride 101 mmol/L (98-107) 02/01/17 07:17 Carbon Dioxide 26 mmol/L (22-30) 02/01/17 07:17 Anion Gap 19 (10-20) 02/01/17 07:17 BUN 17 mg/dL (7-17) 02/01/17 07:17 Creatinine 0.8 MG/DL (0.7-1.2) 02/01/17 07:17 Est GFR ( Amer) > 60 02/01/17 07:17 Est GFR (Non-Af Amer) > 60 02/01/17 07:17 POC Glucose (mg/dL) 116 mg/dL (65-110) H 02/01/17 11:27 Random Glucose 94 mg/dL (65-105) 02/01/17 07:17 Calcium 9.5 mg/dl (8.6-10.4) 02/01/17 07:17 Total Bilirubin 0.5 mg/dL (0.2-1.3) 02/01/17 07:17 AST 25 U/L (14-36) 02/01/17 07:17 ALT 23 U/L (9-52) 02/01/17 07:17 Alkaline Phosphatase 67 U/L (38-126) 02/01/17 07:17 Total Creatine Kinase 81 U/L (30-135) 01/31/17 23:53 CK-MB (Mass) 0.75 ng/mL (0.0-3.38) 01/31/17 23:53 Troponin I < 0.0120 ng/mL (0.00-0.120) 01/31/17 11:40 Troponin I, Quant < 0.0120 ng/mL (0.00-0.120) 01/31/17 23:53 Total Protein 7.4 g/dL (6.3-8.3) 02/01/17 07:17 Albumin 3.8 g/dL (3.5-5.0) 02/01/17 07:17 Globulin 3.7 gm/dL (2.2-3.9) 02/01/17 07:17 Albumin/Globulin Ratio 1.0 (1.0-2.1) 02/01/17 07:17 Triglycerides 76 mg/dL (0-149) 02/01/17 07:17 Cholesterol 208 mg/dL (0-199) H 02/01/17 07:17 LDL Cholesterol Direct 133 mg/dL (0-129) H 02/01/17 07:17 HDL Cholesterol 55 mg/dL (30-70) 02/01/17 07:17 Amylase 129 U/L (30-110) H 01/31/17 11:40 Lipase 109 U/L (23-300) 01/31/17 11:40 Thyroxine (T4) 6.23 ug/dL (5.5-11.0) 02/01/17 07:17 TSH 3rd Generation 1.25 mIU/L (0.46-4.68) 02/01/17 07:17 Urine Color Yellow (YELLOW) 01/31/17 11:40 Urine Clarity Hazy (Clear) 01/31/17 11:40 Urine pH 6.0 (5.0-8.0) 01/31/17 11:40 Ur Specific [place] 1.011 (1.003-1.030) 01/31/17 11:40 Urine Protein 1+ mg/dL (NEGATIVE) H 01/31/17 11:40 Urine Glucose (UA) 1+ mg/dL (Normal) 01/31/17 11:40 Urine Ketones Negative mg/dL (NEGATIVE) 01/31/17 11:40 Urine Blood 3+ (NEGATIVE) H 01/31/17 11:40 Urine Nitrate Negative (NEGATIVE) 01/31/17 11:40 Urine Bilirubin Negative (NEGATIVE) 01/31/17 11:40 Urine Urobilinogen Normal mg/dL (0.2-1.0) 01/31/17 11:40 Ur Leukocyte Esterase 3+ [place]/uL (Negative) H 01/31/17 11:40 Urine WBC (Auto) 750 /hpf (0-5) H 01/31/17 11:40 Urine RBC (Auto) 86 /hpf (0-3) H 01/31/17 11:40 Urine WBC Clumps (Auto) Few /hpf (NONE) H 01/31/17 11:40 Ur Squamous Epith Cells 2 /hpf (0-5) 01/31/17 11:40 Urine Bacteria Mod (<OCC) H 01/31/17 11:40 Attending/Attestation - Attestation I have personally seen and examined this patient.: Yes I have fully participated in the care of the patient.: Yes I have reviewed all pertinent clinical information, including history, physical exam and plan: Yes Notes (Text): 02/01/17 15:32 Patient was seen and examined at bedside with the resident Patient appears comfortable We will discharge the patient on oral antibiotics and patient will follow with her primary medical doctor
--- NOTE | 2017-02-01 12:17 | US ---
Renal ultrasound History: Urinary tract infection. Evaluate for hydronephrosis. Comparison: None available. Technique: Real-time sonography was performed through the kidneys. Findings: Right kidney: 8.9 x 4.1 x 4.2 centimeters. Increased echogenicity of the renal cortex suggestive for medical renal disease. No hydronephrosis. Lower pole hypoechoic cyst measuring 2.7 x 2.6 x 2.6 centimeters. Left Kidney: 8.8 x 4.3 x 3.7 centimeters. Increased echogenicity of the renal cortex suggestive for medical renal disease. No hydronephrosis. Visualized aorta is grossly preserved. Under distended urinary bladder, limiting evaluation. Impression: Increased echogenicity of the bilateral renal cortices suggestive for medical renal disease. 2.7 centimeter lower pole hypoechoic right renal cyst. Underdistended urinary bladder.
[2017-02-01 15:56] VITALS: BP 154/61; PULSE 97
== END 2017-02-01 14:55 | disposition home or self-care (01) | DRG 690 ==
LOC: C.ER 10:13 → C.9E 15:00 → C.6T 16:27
PROVIDERS: ADMIT Internal Medicine; ATTEND Internal Medicine
DX: N39.0 Urinary tract infection, site not specified (principal); B96.1 Klebsiella pneumoniae [K. pneumoniae] as the cause of diseases classified elsewhere; E11.9 Type 2 diabetes mellitus without complications; I10 Essential (primary) hypertension; E78.5 Hyperlipidemia, unspecified; M81.0 Age-related osteoporosis without current pathological fracture; E78.00 Pure hypercholesterolemia, unspecified; Z98.51 Tubal ligation status